=== PATIENT | female | born 1940 | race Caucasian/White ===

== ENCOUNTER 2017-11-21 13:26 | Emergency (ER) | payer OTHER ==
--- NOTE | 2017-11-21 14:04 | ER ---
Nurse's Notes [facility] Name: Charline Leahy Age: 77 yrs Sex: Female : 1940 Arrival Date: 11/21/2017 Time: 13:30 Bed 12 Private MD: Pearl Gross C Diagnosis: Urinary tract infection, site not specified;Dysuria Presentation: 11/21 13:31 Presenting complaint: Patient states: burning with urination since , taking la1 azos, not helping. Transition of care: patient was not received from another setting of care. Onset of symptoms was November 21, 2017. Risk Assessment: Do you want to hurt yourself or someone else? Patient reports no desire to harm self or others. Initial Sepsis Screen: Does the patient meet any 2 criteria? No. Patient's initial sepsis screen is negative. Does the patient have a suspected source of infection? No. Patient's initial sepsis screen is negative. Care prior to arrival: None. 13:31 Method Of Arrival: Ambulatory la1 13:31 Acuity: YANELY 4 la1 Historical: - Allergies: 13:32 Sulfa (Sulfonamide Antibiotics); la1 - PMHx: 13:32 Bipolar disorder; Hypertension; la1 - Immunization history:: Adult Immunizations up to date. - Social history:: Smoking status: Patient/guardian denies using tobacco. - Ebola Screening: : No symptoms or risks identified at this time. Screenin:55 Abuse screen: Denies threats or abuse. Nutritional screening: No deficits noted. la1 Tuberculosis screening: No symptoms or risk factors identified. Fall Risk None identified. Assessment: 13:55 General: Appears well groomed, well developed, well nourished, Behavior is calm, la1 cooperative, appropriate for age. Pain: Denies pain. Neuro: Level of Consciousness is awake, alert, obeys commands, Oriented to person, place, time, situation, Gait is steady, Speech is normal. Cardiovascular: Capillary refill < 3 seconds Patient's skin is warm and dry. Respiratory: Airway is patent Respiratory effort is even, unlabored, Respiratory pattern is regular, symmetrical. GI: No signs and/or symptoms were reported involving the gastrointestinal system. : Reports burning with urination, since . Vital Signs: 13:32 BP 130 / 68; Pulse 61; Resp 16; Temp 97.3(TE); Pulse Ox 96% on R/A; Weight 64.86 kg; la1 Height 5 ft. 4 in. (162.56 cm); 13:32 Body Mass Index 24.55 (64.86 kg, 162.56 cm) la1 ED Course: 13:30 Patient arrived in ED. mr 13:30 None, None is Private Physician. mr 13:30 Pearl Gross MD is Private Physician. mr 13:31 Triage completed. la1 13:32 Arm band placed on right wrist. la1 13:46 Sissy Colbert, RN is Primary Nurse. iw 13:55 Anna Cote FNP-C is PHCP. snw 13:55 Arnulfo Medina MD is Attending Physician. snw 13:55 Call light in reach. la1 13:55 No provider procedures requiring assistance completed. Patient did not have IV access la1 during this emergency room visit. 14:02 Pearl Gross MD is Referral Physician. snw 14:12 Urine collected: clean catch specimen, cloudy. [facility] 14:12 Urine Culture Sent. [facility] Administered Medications: 14:18 Drug: Rocephin (cefTRIAXone) 1 grams Route: IM; Site: left gluteus; Outcome: 14:03 Discharge ordered by MD. snw 14:28 Discharged to home ambulatory, with family. iw 14:28 Condition: good 14:28 Discharge instructions given to patient, family, Instructed on discharge instructions, follow up and referral plans. medication usage, Demonstrated understanding of instructions, follow-up care, medications, Prescriptions given X 1. 14:29 Patient left the ED. iw Addendum: 11/24/2017 07:16 Addendum: Culture Results: Positive urine culture. No further action required. Bacteria s s sensitive to prescribed antibiotic. Signatures: Anna Cote FNP-C FNP-CsnCyndi Hussein mr Sissy Colbert, RN TOÑO Sasha Patel RN RN Logan Pappas RN RN la1 Martinez, Maria [facility]
--- NOTE | 2017-11-21 14:04 | EDPHYS ---
Physician Documentation [facility] Name: Charline Leahy Age: 77 yrs Sex: Female : 1940 Arrival Date: 11/21/2017 Time: 13:30 Bed 12 Private MD: Pearl Gross C ED Physician Arnulfo Medina HPI: 11/21 14:06 This 77 yrs old Female presents to ER via Ambulatory with complaints of snw Urinary Problem. 14:06 The patient presents with urinary symptoms, dysuria, frequency, urgency. Onset: The snw symptoms/episode began/occurred suddenly, 3 day(s) ago, and became persistent. Modifying factors: The symptoms are alleviated by nothing. Associated signs and symptoms: The patient has no apparent associated signs or symptoms. Severity of symptoms: At their worst the symptoms were moderate. The patient has experienced a previous episode. It is unknown whether or not the patient has recently seen a physician. Historical: - Allergies: 13:32 Sulfa (Sulfonamide Antibiotics); la1 - PMHx: 13:32 Bipolar disorder; Hypertension; la1 - Immunization history:: Adult Immunizations up to date. - Social history:: Smoking status: Patient/guardian denies using tobacco. - Ebola Screening: : No symptoms or risks identified at this time. ROS: 14:04 Constitutional: Negative for fever, chills, and weight loss, Eyes: Negative for injury, snw pain, redness, and discharge, ENT: Negative for injury, pain, and discharge, Neck: Negative for injury, pain, and swelling, Cardiovascular: Negative for chest pain, palpitations, and edema, Respiratory: Negative for shortness of breath, cough, wheezing, and pleuritic chest pain, Abdomen/GI: Negative for abdominal pain, nausea, vomiting, diarrhea, and constipation, Back: Negative for injury and pain, : Negative for injury, bleeding, discharge, and swelling, + dysuria MS/Extremity: Negative for injury and deformity, Skin: Negative for injury, rash, and discoloration, Neuro: Negative for headache, weakness, numbness, tingling, and seizure, Psych: Negative for depression, anxiety, suicide ideation, homicidal ideation, and hallucinations. Exam: 14:04 Constitutional: This is a well developed, well nourished patient who is awake, alert, snw and in no acute distress. Head/Face: Normocephalic, atraumatic. Eyes: Pupils equal round and reactive to light, extra-ocular motions intact. Lids and lashes normal. Conjunctiva and sclera are non-icteric and not injected. Cornea within normal limits. Periorbital areas with no swelling, redness, or edema. ENT: Nares patent. No nasal discharge, no septal abnormalities noted. Tympanic membranes are normal and external auditory canals are clear. Oropharynx with no redness, swelling, or masses, exudates, or evidence of obstruction, uvula midline. Mucous membranes moist. Neck: Trachea midline, no thyromegaly or masses palpated, and no cervical lymphadenopathy. Supple, full range of motion without nuchal rigidity, or vertebral point tenderness. No Meningismus. Chest/axilla: Normal chest wall appearance and motion. Nontender with no deformity. No lesions are appreciated. Cardiovascular: Regular rate and rhythm with a normal S1 and S2. No gallops, murmurs, or rubs. Normal PMI, no JVD. No pulse deficits. Respiratory: Lungs have equal breath sounds bilaterally, clear to auscultation and percussion. No rales, rhonchi or wheezes noted. No increased work of breathing, no retractions or nasal flaring. Abdomen/GI: Soft, non-tender, with normal bowel sounds. No distension or tympany. No guarding or rebound. No evidence of tenderness throughout. Back: No spinal tenderness. No costovertebral tenderness. Full range of motion. Skin: Warm, dry with normal turgor. Normal color with no rashes, no lesions, and no evidence of cellulitis. MS/ Extremity: Pulses equal, no cyanosis. Neurovascular intact. Full, normal range of motion. Neuro: Awake and alert, GCS 15, oriented to person, place, time, and situation. Cranial nerves II-XII grossly intact. Motor strength 5/5 in all extremities. Sensory grossly intact. Cerebellar exam normal. Normal gait. Psych: Awake, alert, with orientation to person, place and time. Behavior, mood, and affect are within normal limits. Vital Signs: 13:32 BP 130 / 68; Pulse 61; Resp 16; Temp 97.3(TE); Pulse Ox 96% on R/A; Weight 64.86 kg; la1 Height 5 ft. 4 in. (162.56 cm); 13:32 Body Mass Index 24.55 (64.86 kg, 162.56 cm) la1 MDM: 13:55 Patient medically screened. snw 14:05 Data reviewed: vital signs, nurses notes. Data interpreted: Pulse oximetry: on room air snw is 96 %. Interpretation: acceptable. Counseling: I had a detailed discussion with the patient and/or guardian regarding: the historical points, exam findings, and any diagnostic results supporting the discharge/admit diagnosis, lab results, the need for outpatient follow up, to return to the emergency department if symptoms worsen or persist or if there are any questions or concerns that arise at home. Special discussion: Based on the history and exam findings, there is no indication for further emergent testing or inpatient evaluation. I discussed with the patient/guardian the need to see the primary care provider for further evaluation of the symptoms. 11/21 13:49 Order name: Urine Microscopic Only; Complete Time: 14:12 iw 11/21 13:49 Order name: Urine Culture iw 11/21 13:33 Order name: Urine Dipstick-Ancillary (obtain specimen); Complete Time: 13:45 la1 11/21 13:57 Order name: Urine Dipstick--Ancillary (enter results); Complete Time: 14:12 eb Administered Medications: 14:18 Drug: Rocephin (cefTRIAXone) 1 grams Route: IM; Site: left gluteus; Disposition: 15:36 Co-signature as Attending Physician, Arnulfo Medina MD I agree with the assessment and kdr plan of care. Disposition: 11/21/17 14:03 Discharged to Home. Impression: Urinary tract infection, site not specified, Dysuria. - Condition is Stable. - Discharge Instructions: Urinary Tract Infection, Adult, Rehydration, Elderly. - Prescriptions for Augmentin 875- 125 mg Oral Tablet - take 1 tablet by ORAL route every 12 hours for 10 days; 20 tablet. - Medication Reconciliation Form, Thank You Letter, Antibiotic Education, Prescription Opioid Use form. - Follow up: Pearl Gross MD; When: 2 - 3 days; Reason: Recheck today's complaints, Continuance of care, Re-evaluation by your physician. Follow up: Emergency Department; When: As needed; Reason: Worsening of condition. Signatures: Dispatcher [employer] [facility] Arnulfo Medina MD MD kdr Therrien, Shelly, AUTHOR AGENT-C AUTHOR AGENT-Csnw Sissy Colbert, RN RN iw Logan Pappas RN RN la1 Corrections: (The following items were deleted from the chart) 14:29 14:03 11/21/2017 14:03 Discharged to Home. Impression: Urinary tract infection, site iw not specified; Dysuria. Condition is Stable. Forms are Medication Reconciliation Form, Thank You Letter, Antibiotic Education, Prescription Opioid Use. Follow up: A Gross; When: 2 - 3 days; Reason: Recheck today's complaints, Continuance of care, Re-evaluation by your physician. Follow up: Emergency Department; When: As needed; Reason: Worsening of condition. snw
[2017-11-21 14:09] LABS: Urine Blood 2+ (NEG); Urine Glucose NEGATIVE (NEG); Urine Protein 2+ (NEG); Urine Specific Gravity 1.025 (1.005-1.030)
[2017-11-21 14:11] LABS: Urine Bacteria >50 /HPF (<20); Urine Culture Reflex Order NOT NEEDED; Urine RBC >50 /HPF (NONE SEEN)
[2017-11-21] MEDS ORDERED: LIDOCAINE 1% MPF 5 ML VIAL ONE (14:14)
[2017-11-21] MEDS ORDERED: CEFTRIAXONE 1000 MG/VIAL ONE (14:14)
== END 2017-11-21 14:29 | disposition home or self-care (01) ==
LOC: ER 13:26
DX: N39.0 Urinary tract infection, site not specified (principal); Z88.2 Allergy status to sulfonamides; F31.9 Bipolar disorder, unspecified; I10 Essential (primary) hypertension
CPT/HCPCS: 81003; 81015; 87077; 87086; 87088; 87186; 96372; 99283

== ENCOUNTER 2018-09-10 12:02 | Inpatient (IN) | payer OTHER ==
[2018-09-10] MEDS ORDERED: HYDROMORPHONE HCL 0.5 MG/0.5 ML INJ ONE ×2 (12:28→14:20)
[2018-09-10] MEDS ORDERED: ONDANSETRON 4 MG/2 ML VIAL ONE (12:28)
--- NOTE | 2018-09-10 12:53 | RAD REPORT ---
EXAM DESCRIPTION: RAD - Hip Right 2 View - 09/10/2018 12:39 pm CLINICAL HISTORY: Fall, right hip pain COMPARISON: September 2008 FINDINGS: AP and frog-leg views of the right hip were obtained. Transverse fracture is present thro ugh the right femoral neck. No pathologic component. There is mild impaction along the medial margin of the fracture line. No AVN or focal femoral head abnormality. No significant periarticular abnormal ity. IMPRESSION: Right femoral neck fracture as detailed.
--- NOTE | 2018-09-10 12:53 | RAD REPORT ---
EXAM DESCRIPTION: RAD - Chest Single View - 09/10/2018 12:40 pm CLINICAL HISTORY: Preop chest, femur fracture pending repair COMPARISON: May 2016 TECHNIQUE: AP portable chest image was obtained 1237 hour . FINDINGS: Lung volumes are low. Interstitial markings are similar to comparison. No failure or infil trate. Large hiatal hernia is present. Heart and vasculature are normal. No measurable pleural effusi on and no pneumothorax. No acute bony abnormality seen. No acute aortic findings suspected. IMPRESSION: No acute cardiopulmonary process. No significant change from comparison.
--- NOTE | 2018-09-10 13:09 | ER ---
Nurse's Notes [facility] Name: Charline Leahy Age: 78 yrs Sex: Female : 1940 Arrival Date: 09/10/2018 Time: 12:05 Bed 2 Private MD: Diagnosis: Displaced fracture of base of neck of right femur Presentation: 09/10 12:05 Presenting complaint: EMS states: fall from standing with right hip pain. Pt denies aa5 LOC, denies head injury. 12:05 Acuity: YANELY 3 aa5 12:05 Care prior to arrival: Medication(s) given: Fentanyl 75 mcg IVP IV initiated. 22 GA, in aa5 the right forearm. 12:05 Method Of Arrival: EMS: [facility] aa5 12:05 Mechanism of Injury: Fall from standing position. Trauma event details: Injury occurred aa5 in the [facility], Injury occurred: at home. Injury occurred: September 10, 2018. 12:05 Transition of care: patient was not received from another setting of care. Onset of aa5 symptoms was September 10, 2018. Risk Assessment: Do you want to hurt yourself or someone else? Patient reports no desire to harm self or others. Initial Sepsis Screen: Does the patient meet any 2 criteria? No. Patient's initial sepsis screen is negative. Does the patient have a suspected source of infection? No. Patient's initial sepsis screen is negative. 12:05 Care prior to arrival: Placed on backboard. aa5 Trauma Activation: Alert Physician: ED Physician; Name: ; Notified At: ; Arrived At: Physician: General Surgeon; Name: ; Notified At: ; Arrived At: Physician: Radiology; Name: ; Notified At: ; Arrived At: Physician: Respiratory; Name: ; Notified At: ; Arrived At: Physician: Lab; Name: ; Notified At: ; Arrived At: Historical: - Allergies: 12:05 Sulfa (Sulfonamide Antibiotics); aa5 - Home Meds: 12:31 Risperdal 1 mg Oral tab 1 tab once daily [Active]; trazodone 50 mg Oral tab 1 tab 3 sr5 times per day [Active]; pramopexole 0.25mg at night [Active]; bupropion HCl 100 mg Oral tab 1 tab 2 times per day [Active]; amlodipine besylate 5mg at morning [Active]; levothyroxine 75 mcg tab 1 tab once daily [Active]; Prevacid Oral once daily [Active]; - PMHx: 12:05 Bipolar disorder; Hypertension; Thyroid problem; aa5 - PSHx: 12:31 endoscope -stretching ring around esophagus; cataract - bilateral; Cholecystectomy; sr5 ovary removed; hysterectomy - partial; endometrosis surgery; colonscopy - "clear" 2009; - Ebola Screening: : No symptoms or risks identified at this time. Screenin:05 Abuse screen: Denies threats or abuse. Nutritional screening: No deficits noted. aa5 Tuberculosis screening: No symptoms or risk factors identified. Fall Risk Fall in past 12 months (25 points). IV access (20 points). Total Trevino Fall Scale indicates High Risk Score (45 or more points). Fall prevention measures have been instituted. Side Rails Up X 2 Placed Close to Nursing Station. Primary Survey: 12:05 NO uncontrolled hemorrhage observed. A: The patient is alert. Airway: patent. aa5 Breathing/Chest: Chest inspection: symmetrical rise and fall of the chest. Circulation: Skin color: pink. Disability Alert. Exposure/Environment: A warming method has been applied: A warm blanket has been provided to the patient. 12:20 Reassessment Airway Airway Patent Breathing/Chest Respiratory pattern Regular aa5 Respiratory effort Spontaneous Unlabored Chest inspection Symmetrical Circulation Color [place] Disability Alert. Secondary Survey: 12:05 HEENT: No deficits noted. Gastrointestinal: No deficits noted. : No deficits noted. aa5 Musculoskeletal: Reports pain in right hip. Assessment: 12:05 General: Appears uncomfortable, Behavior is calm, cooperative. Pain: Complains of pain aa5 in right hip Pain does not radiate. Pain currently is 6 out of 10 on a pain scale. Quality of pain is described as sharp, Is continuous, Aggravated by repositioning, Noted to be resistant to movement. Neuro: Level of Consciousness is awake, alert, obeys commands, Oriented to person, place, time, situation. EENT: No signs and/or symptoms were reported regarding the EENT system. Cardiovascular: Heart tones S1 S2 present Rhythm is regular. Respiratory: Airway is patent Respiratory effort is even, unlabored, Respiratory pattern is regular, symmetrical. GI: No signs and/or symptoms were reported involving the gastrointestinal system. : No signs and/or symptoms were reported regarding the genitourinary system. Derm: Skin is pink, warm \\T\\ dry. Musculoskeletal: Reports pain in right hip Pt with right leg bent, pt states "I can't straighten my leg because it hurts too bad". Pillow to help support right leg provided for comfort. 12:10 Reassessment: Backboard removed by PA. aa5 12:25 Reassessment: Pt to radiology . aa5 13:00 Reassessment: Patient is alert, oriented x 3, equal unlabored respirations, skin aa5 warm/dry/pink. Pt back from radiology . 14:15 Reassessment: Patient is alert, oriented x 3, equal unlabored respirations, skin aa5 warm/dry/pink. Patient states feeling better. 15:20 Reassessment: Patient is alert, oriented x 3, equal unlabored respirations, skin aa5 warm/dry/pink. Patient states feeling better. Vital Signs: 12:05 BP 115 / 63; Pulse 63; Resp 16 S; Temp 97.0(TE); Pulse Ox 97% on R/A; Pain 6/10; aa5 13:05 BP 135 / 55; Pulse 55; Resp 16 S; Pulse Ox 97% on R/A; Pain 5/10; aa5 13:45 BP 123 / 61; Pulse 55; Resp 16 S; Pulse Ox 97% on R/A; aa5 14:08 BP 156 / 58; Pulse 59; Resp 18 S; Pulse Ox 96% on R/A; Pain 10/10; aa5 14:15 Resp 6 S; Pulse Ox 48% on R/A; aa5 14:25 BP 132 / 66; Pulse 63; Resp 12 S; Pulse Ox 100% on Non-rebreather mask; aa5 14:30 Pulse Ox 97% on 2 lpm NC; aa5 14:35 BP 136 / 63; Pulse 64; Resp 16 S; Temp 97.8(TE); Pulse Ox 97% on 2 lpm NC; Pain 5/10; aa5 15:15 BP 123 / 64; Pulse 65; Resp 14 S; Pulse Ox 97% on 2 lpm NC; aa5 14:15 Pt easy to awake to verbal stimuli, pt instructed to take deep breaths and O2 sat aa5 increased to 60%, O2 administered via non-rebreather and O2 increased to 97%. Annabella Coma Score: 12:05 Eye Response: spontaneous(4). Verbal Response: oriented(5). Motor Response: obeys aa5 commands(6). Total: 15. Trauma Score (Adult): 12:05 Eye Response: spontaneous(1); Verbal Response: oriented(1); Motor Response: obeys aa5 commands(2); Systolic BP: > 89 mm Hg(4); Respiratory Rate: 10 to 29 per min(4); Almont Score: 15; Trauma Score: 12 13:05 Eye Response: spontaneous(1); Verbal Response: oriented(1); Motor Response: obeys aa5 commands(2); Systolic BP: > 89 mm Hg(4); Respiratory Rate: 10 to 29 per min(4); Almont Score: 15; Trauma Score: 12 13:45 Eye Response: spontaneous(1); Verbal Response: oriented(1); Motor Response: obeys aa5 commands(2); Systolic BP: > 89 mm Hg(4); Respiratory Rate: 10 to 29 per min(4); Almont Score: 15; Trauma Score: 12 14:08 Eye Response: spontaneous(1); Verbal Response: oriented(1); Motor Response: obeys aa5 commands(2); Systolic BP: > 89 mm Hg(4); Respiratory Rate: 10 to 29 per min(4); Annabella Score: 15; Trauma Score: 12 14:35 Eye Response: spontaneous(1); Verbal Response: oriented(1); Motor Response: obeys aa5 commands(2); Systolic BP: > 89 mm Hg(4); Respiratory Rate: 10 to 29 per min(4); Almont Score: 15; Trauma Score: 12 15:15 Eye Response: spontaneous(1); Verbal Response: oriented(1); Motor Response: obeys aa5 commands(2); Systolic BP: > 89 mm Hg(4); Respiratory Rate: 10 to 29 per min(4); Almont Score: 15; Trauma Score: 12 ED Course: 12:05 Patient arrived in ED. 5 12:05 Rodolfo Saez PA is PHCP. 8 12:05 Edmar Todd MD is Attending Physician. 8 12:05 Arm band placed on Patient placed in an exam room, on a stretcher. aa5 12:05 Patient has correct armband on for positive identification. Placed in gown. Bed in low aa5 position. Call light in reach. Side rails up X2. 12:05 Pillow given. Verbal reassurance given. Pulse ox on. NIBP on. jp3 12:05 Patient maintains SpO2 saturation greater than 95% on room air. Thermoregulation: warm aa5 blanket given to patient. 12:15 Ava Riley RN is Primary Nurse. aa5 12:17 Triage completed. aa5 12:40 Maintain EMS IV. Dressing intact. Good blood return noted. Site clean \\T\\ dry. Gauge \\T\\ onesimo 3 site: 20-gauge in right wrist. 12:46 EKG done, by radiation therapy technician. reviewed by Rodolfo BARRETT. at1 13:00 Initial lab(s) drawn, by me, sent to lab. jp3 13:02 Protime (+inr) Sent. jp3 13:02 Ptt, Activated Sent. jp3 13:02 Basic Metabolic Panel Sent. jp3 13:02 CBC with Diff Sent. jp3 13:08 Pearl Gross MD is Hospitalizing Provider. jr8 14:25 Yu cath inserted, using sterile technique, 16 Fr., by mn, balloon inflated, to aa5 gravity drainage, returned clear yellow urine. Patient tolerated well. 15:20 No provider procedures requiring assistance completed. Patient admitted, IV remains in aa5 place. Administered Medications: 12:23 Drug: Dilaudid 0.5 mg Route: IVP; Site: right forearm; sr5 12:25 Follow up: Response: No adverse reaction aa5 12:23 Drug: Zofran 4 mg Route: IVP; Site: right forearm; sr5 12:24 Follow up: Response: No adverse reaction aa5 14:08 Drug: Dilaudid 0.5 mg Route: IVP; Site: right forearm; aa5 14:15 Follow up: Response: Pain is decreased aa5 Output: 15:15 Urine: 100ml (Yu); Total: 100ml. aa5 Outcome: 13:09 Decision to Hospitalize by Provider. jr8 13:09 Patient's length of stay was not longer than 2 hours. aa5 15:20 Admitted to Med/surg accompanied by tech, family with patient, via stretcher, with aa5 oxygen, with chart, Report called to TOÑO Mitchell 15:20 Condition: stable 15:20 Discharge instructions given to patient, family, Instructed on the need for admit, Demonstrated understanding of instructions. 15:29 Patient left the ED. aa5 Signatures: Ava Riley RN RN aa5 Rodolfo Saez PA PA jr8 Dora Ren, medication nurse EKG Tat1 Tres Cabrera RN RN sr5 Santos Ly jp3 Corrections: (The following items were deleted from the chart) 14:11 13:05 BP 135 / 55; Pulse 55bpm; Resp 16bpm; Spontaneous; Pulse Ox 97% RA; aa5 aa5
--- NOTE | 2018-09-10 13:10 | EDPHYS ---
Physician Documentation [facility] Name: Charline Leahy Age: 78 yrs Sex: Female : 1940 Arrival Date: 09/10/2018 Time: 12:05 Bed 2 Private MD: ED Physician Edmar Todd HPI: 09/10 12:30 This 78 yrs old Female presents to ER via EMS with complaints of Fall Injury. jr8 12:30 Details of fall: The patient fell from an upright position, while standing. Onset: The jr8 symptoms/episode began/occurred acutely, today. Associated injuries: The patient sustained right leg. Severity of symptoms: At their worst the symptoms were moderate, in the emergency department the symptoms are unchanged. The patient has not experienced similar symptoms in the past. The patient has not recently seen a physician. Tripped while in garage. Accidental fall landing on right hip region. Pain with decreased ROM since incident. EMS splinted in place and gave pain medication. Patient still in pain upon arrival. Denies pain anywhere else. Denies hitting head or neck. No LOC . Historical: - Allergies: 12:05 Sulfa (Sulfonamide Antibiotics); aa5 - Home Meds: 12:31 Risperdal 1 mg Oral tab 1 tab once daily [Active]; trazodone 50 mg Oral tab 1 tab 3 sr5 times per day [Active]; pramopexole 0.25mg at night [Active]; bupropion HCl 100 mg Oral tab 1 tab 2 times per day [Active]; amlodipine besylate 5mg at morning [Active]; levothyroxine 75 mcg tab 1 tab once daily [Active]; Prevacid Oral once daily [Active]; - PMHx: 12:05 Bipolar disorder; Hypertension; Thyroid problem; aa5 - PSHx: 12:31 endoscope -stretching ring around esophagus; cataract - bilateral; Cholecystectomy; sr5 ovary removed; hysterectomy - partial; endometrosis surgery; colonscopy - "clear" 2009; - Ebola Screening: : No symptoms or risks identified at this time. ROS: 12:30 Eyes: Negative for injury, pain, redness, and discharge, ENT: Negative for injury, jr8 pain, and discharge, Neck: Negative for injury, pain, and swelling, Cardiovascular: Negative for chest pain, palpitations, and edema, Respiratory: Negative for shortness of breath, cough, wheezing, and pleuritic chest pain, Abdomen/GI: Negative for abdominal pain, nausea, vomiting, diarrhea, and constipation, Back: Negative for injury and pain, Skin: Negative for injury, rash, and discoloration, Neuro: Negative for headache, weakness, numbness, tingling, and seizure. 12:30 MS/extremity: Positive for decreased range of motion, pain, tenderness, of the right leg and right hip. Exam: 12:30 Eyes: Pupils equal round and reactive to light, extra-ocular motions intact. Lids and jr8 lashes normal. Conjunctiva and sclera are non-icteric and not injected. Cornea within normal limits. Periorbital areas with no swelling, redness, or edema. ENT: Nares patent. No nasal discharge, no septal abnormalities noted. Tympanic membranes are normal and external auditory canals are clear. Oropharynx with no redness, swelling, or masses, exudates, or evidence of obstruction, uvula midline. Mucous membranes moist. Neck: Trachea midline, no thyromegaly or masses palpated, and no cervical lymphadenopathy. Supple, full range of motion without nuchal rigidity, or vertebral point tenderness. No Meningismus. Cardiovascular: Regular rate and rhythm with a normal S1 and S2. No gallops, murmurs, or rubs. Normal PMI, no JVD. No pulse deficits. Respiratory: Lungs have equal breath sounds bilaterally, clear to auscultation and percussion. No rales, rhonchi or wheezes noted. No increased work of breathing, no retractions or nasal flaring. Abdomen/GI: Soft, non-tender, with normal bowel sounds. No distension or tympany. No guarding or rebound. No evidence of tenderness throughout. Back: No spinal tenderness. No costovertebral tenderness. Full range of motion. Skin: Warm, dry with normal turgor. Normal color with no rashes, no lesions, and no evidence of cellulitis. Neuro: Awake and alert, GCS 15, oriented to person, place, time, and situation. Cranial nerves II-XII grossly intact. Motor strength 5/5 in all extremities. Sensory grossly intact. Cerebellar exam normal. Normal gait. 12:30 Musculoskeletal/extremity: Extremities: grossly normal except: noted in the right leg: Patient outwardly rotated with pain to palpation of the right inguinal region and lateral hip. Pelvis intact and without crepitus or instability. Pulses 2+ PT and DP bilaterally with normal sensation , ROM: limited active range of motion, in the right leg, limited passive range of motion, in the right leg, limited active range of motion due to pain, in the right leg, limited passive range of motion due to pain, in the right leg, The rest of patients extremities unremarkable . Vital Signs: 12:05 BP 115 / 63; Pulse 63; Resp 16 S; Temp 97.0(TE); Pulse Ox 97% on R/A; Pain 6/10; aa5 13:05 BP 135 / 55; Pulse 55; Resp 16 S; Pulse Ox 97% on R/A; Pain 5/10; aa5 13:45 BP 123 / 61; Pulse 55; Resp 16 S; Pulse Ox 97% on R/A; aa5 14:08 BP 156 / 58; Pulse 59; Resp 18 S; Pulse Ox 96% on R/A; Pain 10/10; aa5 14:15 Resp 6 S; Pulse Ox 48% on R/A; aa5 14:25 BP 132 / 66; Pulse 63; Resp 12 S; Pulse Ox 100% on Non-rebreather mask; aa5 14:30 Pulse Ox 97% on 2 lpm NC; aa5 14:35 BP 136 / 63; Pulse 64; Resp 16 S; Temp 97.8(TE); Pulse Ox 97% on 2 lpm NC; Pain 5/10; aa5 15:15 BP 123 / 64; Pulse 65; Resp 14 S; Pulse Ox 97% on 2 lpm NC; aa5 14:15 Pt easy to awake to verbal stimuli, pt instructed to take deep breaths and O2 sat aa5 increased to 60%, O2 administered via non-rebreather and O2 increased to 97%. Recluse Coma Score: 12:05 Eye Response: spontaneous(4). Verbal Response: oriented(5). Motor Response: obeys aa5 commands(6). Total: 15. Trauma Score (Adult): 12:05 Eye Response: spontaneous(1); Verbal Response: oriented(1); Motor Response: obeys aa5 commands(2); Systolic BP: > 89 mm Hg(4); Respiratory Rate: 10 to 29 per min(4); Annabella Score: 15; Trauma Score: 12 13:05 Eye Response: spontaneous(1); Verbal Response: oriented(1); Motor Response: obeys aa5 commands(2); Systolic BP: > 89 mm Hg(4); Respiratory Rate: 10 to 29 per min(4); Annabella Score: 15; Trauma Score: 12 13:45 Eye Response: spontaneous(1); Verbal Response: oriented(1); Motor Response: obeys aa5 commands(2); Systolic BP: > 89 mm Hg(4); Respiratory Rate: 10 to 29 per min(4); Annabella Score: 15; Trauma Score: 12 14:08 Eye Response: spontaneous(1); Verbal Response: oriented(1); Motor Response: obeys aa5 commands(2); Systolic BP: > 89 mm Hg(4); Respiratory Rate: 10 to 29 per min(4); Annabella Score: 15; Trauma Score: 12 14:35 Eye Response: spontaneous(1); Verbal Response: oriented(1); Motor Response: obeys aa5 commands(2); Systolic BP: > 89 mm Hg(4); Respiratory Rate: 10 to 29 per min(4); Recluse Score: 15; Trauma Score: 12 15:15 Eye Response: spontaneous(1); Verbal Response: oriented(1); Motor Response: obeys aa5 commands(2); Systolic BP: > 89 mm Hg(4); Respiratory Rate: 10 to 29 per min(4); Recluse Score: 15; Trauma Score: 12 MDM: 12:05 Patient medically screened. rust 13:06 Data reviewed: vital signs, nurses notes, lab test result(s), EKG, radiologic studies, rust plain films, and as a result, I will admit patient. Data interpreted: Pulse oximetry: on room air is 97 %. Interpretation: normal. Counseling: I had a detailed discussion with the patient and/or guardian regarding: the historical points, exam findings, and any diagnostic results supporting the discharge/admit diagnosis, lab results, radiology results, the need for further work-up and treatment in the hospital. ED course: Consulted Dr. Sears who will see patient . 13:08 Physician consultation: A Renato GREEN was called at 13:08, was contacted at 13:08, jr regarding admission, to the telemetry unit. consult, patient's condition, and will see patient. 09/10 12:14 Order name: CBC with Diff rn 09/10 12:14 Order name: Basic Metabolic Panel rn 09/10 12:14 Order name: Protime (+inr) rn 09/10 12:14 Order name: Ptt, Activated rn 09/10 13:16 Order name: CBC with Automated Diff; Complete Time: 13:17 EDMS 09/10 13:22 Order name: Protime (+INR); Complete Time: 13:26 EDMS 09/10 12:14 Order name: XRAY Hip RIGHT 2 view rn 09/10 12:14 Order name: XRAY Chest (1 view) rn 09/10 12:55 Order name: RAD; Complete Time: 13:07 EDMS 09/10 12:55 Order name: RAD; Complete Time: 13:07 EDMS 09/10 13:22 Order name: PTT, Activated Partial Thromb; Complete Time: 13:26 EDMS 09/10 15:10 Order name: Basic Metabolic Panel; Complete Time: 15:50 EDMS 09/10 12:13 Order name: IV; Complete Time: 12:16 jr8 09/10 12:13 Order name: EKG; Complete Time: 12:14 jr8 09/10 12:13 Order name: EKG - Nurse/Tech; Complete Time: 14:53 jr8 09/10 13:26 Order name: Yu; Complete Time: 14:30 jr8 Administered Medications: 12:23 Drug: Dilaudid 0.5 mg Route: IVP; Site: right forearm; sr5 12:25 Follow up: Response: No adverse reaction aa5 12:23 Drug: Zofran 4 mg Route: IVP; Site: right forearm; sr5 12:24 Follow up: Response: No adverse reaction aa5 14:08 Drug: Dilaudid 0.5 mg Route: IVP; Site: right forearm; aa5 14:15 Follow up: Response: Pain is decreased aa5 Disposition: 16:25 Co-signature as Attending Physician, Edmar Todd MD. rn Disposition: 09/10/18 13:09 Hospitalization ordered by Pearl Gross for Inpatient Admission. Preliminary diagnosis is Displaced fracture of base of neck of right femur. - Bed requested for Telemetry/MedSurg (Inpatient). - Status is Inpatient Admission. aa5 - Condition is Stable. - Problem is new. - Symptoms have improved. UTI on Admission? No Signatures: Dispatcher [employer] EDMS Holly Parkinson RN RN dw Edmar Todd MD MD rn Calderon, Audri, RN RN aa5 Rodolfo Saez PA PA jr8 Tres Cabrera RN RN sr5 Corrections: (The following items were deleted from the chart) 14:01 13:09 Hospitalization Ordered by A Renato GREEN for Inpatient Admission. Preliminary dw diagnosis is Displaced fracture of base of neck of right femur. Bed requested for Telemetry/MedSurg (Inpatient). Status is Inpatient Admission. Condition is Stable. Problem is new. Symptoms have improved. UTI on Admission? No. jr8 15:29 14:01 09/10/2018 13:09 Hospitalization Ordered by A Renato GREEN for Inpatient Admission. aa5 Preliminary diagnosis is Displaced fracture of base of neck of right femur. Bed requested for Telemetry/MedSurg (Inpatient). Status is Inpatient Admission. Condition is Stable. Problem is new. Symptoms have improved. UTI on Admission? No. dw
[2018-09-10 13:14] LABS: Basophils % 0.7 % (0-1.3); Hematocrit 36.6 % (36.0-45.0); Lymphocytes % 8.7 % (15.3-44.8); MPV 7.5 fL (7.6-11.3); Monocytes % 5.8 % (3.3-12.3)
[2018-09-10 13:18] LABS: Protime INR 0.92
--- NOTE | 2018-09-10 15:08 | EKG ---
Test Date: 2018-09-10 Test Time: 12:43:52 Carbide Powder Processor: ANABELL/S MEASUREMENT RESULTS: Intervals: Rate: 52 GA: 152 QRSD: 90 QT: 438 QTc: 407 Warren: P: 39 GA: 152 QRS: -18 T: 30 INTERPRETIVE STATEMENTS: Sinus bradycardia with sinus arrhythmia Otherwise normal ECG Compared to ECG 02/18/2014 16:48:17 Sinus rhythm no longer present T-wave abnormality no longer present Electronically Signed On 09-10-18 15:07:51 CDT by Roberth Atwood
[2018-09-10] MEDS ORDERED: ONDANSETRON 4 MG/2 ML VIAL IV PRN (15:51)
[2018-09-10] MEDS ORDERED: MORPHINE 4 MG/ML SYR IV PRN (15:51)
[2018-09-10] MEDS: NA CHLORIDE 0.9% 1,000 ML IV SCH (16:27)
[2018-09-10] MEDS: MORPHINE 4 MG/ML SYR IV PRN ×2 (20:00→22:13)
[2018-09-10] MEDS: FAMOTIDINE 20 MG TAB PO SCH (21:00)
[2018-09-10] MEDS ORDERED: TRAZODONE 50 MG TABLET PO SCH (21:00)
[2018-09-10] MEDS ORDERED: RISPERIDONE 1 MG TABLET PO SCH (21:00)
[2018-09-10] MEDS ORDERED: PRAMIPEXOLE 0.25 MG TAB PO SCH (21:00)
[2018-09-11] MEDS: MORPHINE 4 MG/ML SYR IV PRN ×4 (00:45→23:47)
--- NOTE | 2018-09-11 01:29 | CON ---
Date of Consultation: 09/10/2018 History Of Present Illness: This is my first time seeing this patient to my knowledge. She is a 78- year-old female who unfortunately injured her right lower extremity. She was seen and examined in [facility] Emergency Department where she was ruled out for other injuries; however, x-rays demonstrated a dis placed femoral neck fracture on the right. Physical Examination: All of her long bones and joints are palpated without pain or crepitation with exception of significa nt amount of pain related to the right hip as well as pain with any movement or manipulation of the r ight lower extremity. She is alert and oriented x3 and denies any other injury. Imaging Data: Review of the x-rays demonstrates a displaced right femoral neck fracture. Assessment: This is a 78-year-old female, now with a displaced right femoral neck fracture. Plan: Plan at this time: I spoke with both the patient and her family. Discussed different options and at this time we will proceed with bipolar hemiarthroplasty on the right. The risks, benefits, a nd alternatives of this specific procedure had been explained to her. Dr. Gross is seeing her now and I believe knows her well, and she is cleared from his standpoint when asked. We will plan on doing this tomorrow morning. I think she can eat now, be n.p.o. after midnight. SCD to the contralateral lower extremity. /MILANA Voice ID: [id number] Report ID: [id number]
--- NOTE | 2018-09-11 02:40 | HP ---
Date of Admission: 09/10/2018 Chief Complaint: Fall and hip pain. History Of Present Illness: This is a 78-year-old female patient who lives at home with her , and she decided to go visit daughter at her house, and as she was walking in her daughter's garage, there was a wet spot on the garage floor and she slipped, lost her balance, and fell down. Daughter was inside the house and she heard the patient screaming and she came to check on her and the patient was brought into emergency room. After she was evaluated, she was admitted to the hospital under my service with a diagnosis of hip fracture. I saw her this afternoon and daughter was present with he r at bedside. The patient denies any pain or injury anywhere else. Allergies: TO SULFA. Medications: Amlodipine 5 mg 2 times a day, bupropion 300 mg p.o. daily, cyclobenzaprine 5 mg at bed time as needed for headache, levothyroxine 75 mcg p.o. daily, Mirapex 0.25 mg every day at bedtime as needed, multivitamin daily, propranolol 10 mg p.o. every morning, Risperdal 1 mg at bedtime, trazodo ne 50 mg takes 3 tablets at bedtime, valsartan 80 mg daily, vitamin B12 500 mcg daily, vitamin D3 400 units p.o. daily. Review of Systems: Musculoskeletal: As mentioned above. All other systems reviewed and negative. Past Medical History: Hypertension, chronic kidney disease stage 3, hypothyroidism, osteoporosis, hy perlipidemia, impaired fasting glucose, diverticulosis, gastroesophageal reflux disease, bipolar diso rder, allergic rhinitis. Past Surgical History: Significant for basal cell carcinoma of skin over nose and had surgery for re moval of that, cholecystectomy, hysterectomy. Family History: Significant for brain tumor, osteoarthritis, and father had squamous cell cancer. Social History: Negative for smoking, alcohol use. Physical Examination: Vital Signs: When she first came into emergency room, temperature 97, pulse 63, respiratory rate 16, blood pressure 115/63, oxygen saturation 97%, height 5 feet 4 inches, weight 150 pounds. General: Awake, alert, oriented, not in distress. HEENT: Head atraumatic, normocephalic. Conjunctivae nonerythematous. Sclerae white. Mouth, no thr ush or edema noted. Ears/Nose, no mass, lesion, discharge noted. Neck: Supple. No JVD, lymph nodes, bruit, thyromegaly noted. Lungs: Bilateral good equal air entry. Clear to auscultation. No rhonchi. No rales. Heart: Normal heart sounds, no murmur or gallop. Abdomen: Soft, bowel sounds normal. No guarding, rigidity, tenderness, mass, hepatosplenomegaly, dis tention, or bruit noted. Extremities: No leg edema. No calf tenderness. Skin: No rash, ulcer, cellulitis. Lymphatics: No lymph node enlargement in neck, supraclavicular, infraclavicular region. Neuro: No focal neurological deficit. Chest: Unremarkable. External Genitalia: Deferred. Rectal: Deferred. Laboratory Data: White count 11.8, hemoglobin 12, platelets 328. INR 0.92. Sodium 143, potassium 4 , chloride 113, bicarb 23, BUN 18, creatinine 1.01, glucose 113. Hip x-ray shows right femoral neck fracture. Chest x-ray, no acute cardiopulmonary changes. Electrocardiogram, normal sinus rhythm. N o acute ST-T changes. Impression: 1.Right femoral neck fracture. 2.Osteoporosis, senile. 3.Hypertension. 4.Hyperlipidemia. 5.Impaired fasting glucose. 6.Diverticulosis. 7.Hypothyroidism. 8.Depression. 9.Bipolar disorder. Plan: Admit patient to hospital for further evaluation and management of this problem. The patient is appropriate for inpatient and is expected to spend 2 midnights in hospital. We will go ahead and continue home medications per order. SCD will be applied for DVT prophylaxis and we will give pain m edication per order. Orthopedic consultation will be requested from Dr. Sears. The patient will have surgery done tomorrow. She is at acceptable risk from planned surgery and SCD will be applied for DVT prophylaxis. I will see her tomorrow for followup. Details and plan of treatment discussed with her. After I saw her, nurse contacted and informed me that morphine 4 mg which was ordered ever y 4 hours was not enough to control her pain, so I have changed the order to morphine 4 mg every 2 ho urs as needed. We will keep her n.p.o. after midnight, but today we will go ahead and give regular d iet. REN/MODL Voice ID: [id number]
[2018-09-11 06:12] LABS: Absolute Lymphocytes (CBC) 0.6 K/uL (0.7-4.9); Basophils % 0.4 % (0-1.3); Eosinophils % 2.7 % (0-4.4); Hematocrit 37.3 % (36.0-45.0); MPV 7.3 fL (7.6-11.3); Monocytes % 8.9 % (3.3-12.3); RBC Red Blood Cell Count 4.14 M/uL (3.86-4.86)
[2018-09-11] MEDS: LEVOTHYROXINE SOD 0.075 MG TAB PO SCH ×2 (06:12→08:30)
[2018-09-11 06:15] LABS: Potassium 3.9 mmol/L (3.5-5.1)
[2018-09-11] MEDS ORDERED: CEFAZOLIN/SWI 1gm 1 GM/10 ML SYR ONE (08:32)
[2018-09-11] MEDS ORDERED: buPROPion HCl 100 MG TAB PO SCH (09:00)
[2018-09-11] MEDS ORDERED: AMLODIPINE 5 MG TAB PO SCH (09:00)
[2018-09-11] MEDS ORDERED: TRANEXAMIC ACID 1,000 MG in NA CHLORIDE 0.9% 50 ML IV ONE (09:00)
[2018-09-11] MEDS ORDERED: PROPRANOLOL HCL 10 MG TAB PO SCH (09:00)
[2018-09-11] MEDS ORDERED: ROCURONIUM 50 MG/5 ML VIAL IV ONE (09:56)
[2018-09-11] MEDS ORDERED: PROPOFOL 200 MG/20 ML VIAL IV ONE (09:56)
[2018-09-11] MEDS ORDERED: LIDOCAINE 2% MPF 5 ML VIAL ONE (09:56)
[2018-09-11] MEDS ORDERED: Phenylephrine HCl 10 MG/ML 1 ML VIAL ONE (09:57)
[2018-09-11] MEDS ORDERED: FENTANYL CITR 100 MCG/2 ML ONE (09:57)
[2018-09-11] MEDS ORDERED: GLYCOPYRROLATE 0.2 MG/ML SYR ONE ×3 (10:33→11:55)
[2018-09-11] MEDS ORDERED: ONDANSETRON 4 MG/2 ML VIAL ONE (11:02)
[2018-09-11] MEDS ORDERED: KETOROLAC 30 MG/ML INJ ONE (11:02)
[2018-09-11] MEDS ORDERED: DEXAMETHASONE 10 MG/ML VIAL ONE (11:03)
[2018-09-11] MEDS ORDERED: Ringers Lactate 1,000 ML IV ONE ×2 (11:13→13:10)
[2018-09-11] MEDS: NA CHLORIDE 0.9% 1,000 ML IV SCH (11:51)
[2018-09-11] MEDS ORDERED: NEOSTIGMINE 1 MG/ML -10 ML VIAL ONE (11:56)
--- NOTE | 2018-09-11 12:04 | PN ---
Date of Progress Note: 09/11/2018 Subjective: The patient was seen this morning for followup. She was in surgery holding area prior t o her surgery. Daughter was at bedside. Vital signs reviewed. She denied any complaints. Overnigh t, her pain was well controlled with morphine every 2 hours p.r.n. per order, because every 4-hour mo rphine was not helping her. So, we change it to every 2 hours and that actually helped to control he r pain very well. No nausea, no vomiting. Objective: Vital Signs: Reviewed. HEENT: Unremarkable. Lungs: Clear to auscultation. Heart: Sounds normal. Abdomen: Soft. Bowel sounds normal. No guarding, rigidity, tenderness, or distention. Extremities: No leg edema. Laboratory Data: White count 11.3, hemoglobin 12.5, platelets 306. Sodium 140, potassium 3.9, chlor jarrod 108, bicarb 27, BUN 15, creatinine 0.9, glucose 117. Impression: 1.Right hip femoral neck fracture. 2.Osteoporosis, senile. 3.Hypertension. 4.Impaired fasting glucose. Plan: The patient will go ahead and have surgery today. Postoperatively, we will start DVT prophyla xis with SCD and Lovenox at appropriate time. Continue current pain medication and other home medica tions per order. I will see her tomorrow for followup. Details were discussed with the patient and the patient's daughter, who was at bedside. REN/MODL Voice ID: [id number] Report ID: [id number]
--- NOTE | 2018-09-11 12:38 | P.BOP ---
Preoperative diagnosis: right femoral neck fracture Postoperative diagnosis: same Primary procedure: right hip bibolar hemiarthoplasty Estimated blood loss: 50 ccs Anesthesia: General Complications: None Transferred to: Recovery Room Condition: Good
--- NOTE | 2018-09-11 13:23 | OP ---
Date of Procedure: 09/11/2018 Surgeon: Jem Sears MD Preoperative Diagnosis: Right displaced femoral neck fracture. Postoperative Diagnosis: Right displaced femoral neck fracture. Procedure: Right hip bipolar hemiarthroplasty, which was cemented using Biomet implants. Estimated Blood Loss: 50 cc. Complications: None. Specimens: No pathology specimen sent other than the head. Indications For Operation: Ms. Leahy is a 78-year-old female who unfortunately fell injuring her rig ht lower extremity. She was seen in the Emergency Department where she was ruled out for other injur ies; however, x-rays demonstrated a displaced right femoral neck fracture. On seeing her in the room , she had pain isolated to the right hip. Review of x-rays reveal a displaced right femoral neck fra cture. I discussed with the patient and family different options including open reduction and international marketing specialist al fixation, total hip arthroplasty, bipolar hemiarthroplasty. At this time bipolar hemiarthroplasty was selected and risks, benefits, and alternatives of this procedure as well as others were discusse d. They state they understand things as presented. Description Of Procedure: The patient was taken to the operating room and placed in supine position. General anesthesia was obtained by the staff. Following this, she was then moved onto the operativ e table. She was then rolled left side down with an axillary roll. Her right lower extremity was th en prepped and draped in usual sterile fashion for the procedure. This was followed by a standard po sterior lateral incision, which was taken down carefully through skin and soft tissues, meticulous he mostasis being maintained using Bovie electrocautery. This led down to the fascia and a stab wound w as made in the fascia. Gluteal tendon was palpated to ensure the fascial incision in the correct pos ition. It was then taken up until the fibers of gluteus addy were encountered. These were then d ivided with finger pressure. The sciatic nerve was then palpated with a finger and protected through out the case. The external rotators and capsule were then taken down carefully and tagged for later repair. This allowed for visualization of the hip. Hip itself was broken. It was quite vertical an d the base of the fracture was fairly short. Therefore a slightly less than normal made neck cut is done removing the remnants of the fractured neck. This was followed by removal of the femoral head u sing a corkscrew. Soft tissues were removed from inside the acetabulum. Hemostasis obtained. The h ead was then sized using ring gauges and a 45 was selected. Attention was then turned back to the fe mur where a box order person used, it was followed by reaming. A cylindrical reamer size [address] d to the 0 point, however, with some difficulty. This was followed by sequential broaching, a size 1 0 was almost completely seated. However, size 11 was felt to be too large. Decision was made to mov e forward with a size 7 femoral stem to avoid overstuffing the femur. The femur was then copiously i rrigated until it was clean. A bone plug was placed to appropriate depth. It was again irrigated an d a size 7 cemented stem was then placed in proper version and held in place until hardened. This wa s followed by placement of trials. A +6 appeared to be the most effective for keeping the hip stable , and it was stable with full flexion, full adduction, and approximately 45 degrees internal rotation . There was no lateral Shuck with tiny amount of movement with longitudinal traction. This was yosef cted as the size and she does go to full extension without difficulty. The wound was then copiously irrigated and the final ball was then put in place. It was then relocated and checked for stability and is again stable on the above parameters. The external rotators and capsule were then repaired ba ck to the greater trochanter using bone tunnels, this was followed by closure of the fascia in watert ight fashion using heavy Vicryl sutures, followed by closure of the skin using Vicryl, followed by st radha. The patient was then placed in Aquacel dressing, awakened and taken to recovery room in good condition. There were no complications. /MILANA Voice ID: [id number] Report ID: [id number]
[2018-09-11] MEDS ORDERED: CEFAZOLIN/NS 1gm 1 GM/50 ML BAG IVPB SCH (17:00)
[2018-09-11] MEDS: CEFAZOLIN/SWI 1gm 1 GM/10 ML SYR IV SCH (17:04)
[2018-09-11] MEDS: DESYREL 50 MG PO SCH (20:15)
[2018-09-11] MEDS: NORVASC 5 MG PO SCH (20:15)
[2018-09-11] MEDS: FAMOTIDINE 20 MG TAB PO SCH (20:15)
[2018-09-11] MEDS: MIRAPEX 0.25 MG PO SCH (20:15)
[2018-09-12] MEDS: CEFAZOLIN/SWI 1gm 1 GM/10 ML SYR IV SCH ×3 (00:09→16:22)
[2018-09-12] MEDS: NA CHLORIDE 0.9% 1,000 ML IV SCH ×2 (00:09→07:51)
[2018-09-12 06:14] LABS: Absolute Lymphocytes (CBC) 0.4 K/uL (0.7-4.9); Basophils % 0.2 % (0-1.3); Hematocrit 33.7 % (36.0-45.0); Lymphocytes % 3.7 % (15.3-44.8); MPV 7.7 fL (7.6-11.3); Monocytes % 9.8 % (3.3-12.3)
[2018-09-12 06:23] LABS: Magnesium 2.1 mg/dL (1.8-2.4); Potassium 4.6 mmol/L (3.5-5.1)
[2018-09-12 08:28] LABS: Blood Morphology Comment NOT SEEN (NOT SEEN); Platelet Estimate ADEQ
[2018-09-12] MEDS: ENOXAPARIN 40 MG/0.4 ML SQ SCH (08:31)
[2018-09-12] MEDS: NORVASC 5 MG PO SCH ×2 (08:33→20:11)
[2018-09-12] MEDS: WELLBUTRIN 300 MG PO SCH (08:33)
[2018-09-12] MEDS: INDERAL PO SCH (08:34)
--- NOTE | 2018-09-12 11:42 | PN ---
Date of Progress Note: 09/12/2018 Subjective: The patient was seen this morning for followup. No new complaints or problems reported by her. She was sitting in the wheelchair, her daughter and physical therapist were with her. Objective: Vital Signs: Reviewed. HEENT: Unremarkable. Lungs: Clear to auscultation. Heart: Heart sounds normal. Abdomen: Soft. Extremities: No leg edema. Laboratory Data: White count 11.3, hemoglobin 10.8, platelets 260. Sodium 141, potassium 4.6, chlor jarrod 110, bicarb 24, BUN 18, creatinine 1, glucose 101. Impression: 1.Right hip femoral neck fracture. 2.Hypertension. 3.Anemia due to acute blood loss. 4.Osteoporosis. Plan: We will go ahead and continue Lovenox for DVT prophylaxis, which was started today. We will m onitor the patient's hemoglobin. We will consult occupational therapy and rehab, and I will see her tomorrow for followup. Stool softener will be given per order. REN/MODL Voice ID: [id number] Report ID: [id number]
[2018-09-12] MEDS: MIRAPEX 0.25 MG PO SCH (20:11)
[2018-09-12] MEDS: DESYREL 50 MG PO SCH (20:11)
[2018-09-12] MEDS: FAMOTIDINE 20 MG TAB PO SCH (20:12)
[2018-09-12] MEDS: DOCUSATE NA/SENNA CONC 1 TAB PO SCH (20:12)
--- NOTE | 2018-09-12 23:08 | PN ---
Date of Progress Note: 09/12/2018 The patient is seen today. Her hemoglobin is 10.8. She has been afebrile. EHL, tibialis anterior, plantar flexion are all strong. Her dressing is clean, dry, and intact. I spoke with Physical Therfiliberto marrufo. They say that she is walking really quite well. I think at this time the plan is for anticoagul ation as needed or determined by the hospitalist. Also, [facility] All the patient's questions have otherwise been answered today. KAELA Voice ID: [id number] Report ID: [id number]
[2018-09-13 05:59] LABS: Absolute Lymphocytes (CBC) 0.8 K/uL (0.7-4.9); Basophils % 0.5 % (0-1.3); Hematocrit 31.4 % (36.0-45.0); MPV 7.5 fL (7.6-11.3); Monocytes % 10.9 % (3.3-12.3); RBC Red Blood Cell Count 3.51 M/uL (3.86-4.86)
[2018-09-13 06:09] LABS: Magnesium 2.2 mg/dL (1.8-2.4); Potassium 4.1 mmol/L (3.5-5.1)
[2018-09-13] MEDS ORDERED: BISACODYL 10 MG RECTAL SUPP PR ONE (08:02)
[2018-09-13] MEDS: INDERAL PO SCH (09:03)
[2018-09-13] MEDS: WELLBUTRIN 300 MG PO SCH (09:04)
[2018-09-13] MEDS: NORVASC 5 MG PO SCH ×2 (09:05→21:21)
[2018-09-13] MEDS: ENOXAPARIN 40 MG/0.4 ML SQ SCH (09:06)
[2018-09-13] MEDS: MORPHINE 4 MG/ML SYR IV PRN ×2 (10:27→21:58)
--- NOTE | 2018-09-13 11:51 | PN ---
Date of Progress Note: 09/13/2018 Subjective: The patient was seen this morning for followup. She was sleeping easily, arousable, not in any distress. Has not had a bowel movement since her surgery. Pain is well controlled. Denies any abdominal pain, nausea, vomiting. Objective: Vital Signs: Reviewed HEENT: Examination unremarkable. Lungs: Clear to auscultation. Heart: Sounds normal. Abdomen: Soft. Bowel sounds normal. No guarding, rigidity, tenderness, or distention. Extremities: No leg edema. Laboratory Data: White count 9.8, hemoglobin 10.5, platelets 243. Sodium 143, potassium 4.1, chlori de 109, bicarb 27, BUN 15, creatinine 0.90, glucose 108, magnesium 2.2. Impression: 1.Right hip femoral neck fracture. 2.Constipation. 3.Acute blood loss anemia. 4.Hypertension. Plan: We will go ahead and give Dulcolax rectal suppository. Remove Yu catheter. Continue other current medications including DVT prophylaxis. Physical therapy to continue to work with the nikita t. Pain medication seems to be helping her very well and we will plan to discharge her to go to [facility] rehab facility once she is accepted. The patient is medically stable for transfer. REN/MODL Voice ID: [id number] Report ID: [id number]
[2018-09-13] MEDS: DOCUSATE NA/SENNA CONC 1 TAB PO SCH (21:00)
[2018-09-13] MEDS: FAMOTIDINE 20 MG TAB PO SCH (21:19)
[2018-09-13] MEDS: MIRAPEX 0.25 MG PO SCH (21:21)
[2018-09-13] MEDS: DESYREL 50 MG PO SCH (21:21)
[2018-09-14] MEDS: WELLBUTRIN 300 MG PO SCH (09:35)
[2018-09-14] MEDS: INDERAL PO SCH (09:35)
[2018-09-14] MEDS: NORVASC 5 MG PO SCH ×2 (09:35→20:10)
[2018-09-14] MEDS: ENOXAPARIN 40 MG/0.4 ML SQ SCH (09:36)
[2018-09-14] MEDS: HYDROCODONE/APAP 5/325 MG TAB PO PRN (09:38)
[2018-09-14] MEDS: FAMOTIDINE 20 MG TAB PO SCH (20:09)
[2018-09-14] MEDS: DESYREL 50 MG PO SCH (20:11)
[2018-09-14] MEDS: MIRAPEX 0.25 MG PO SCH (20:12)
[2018-09-14] MEDS: DOCUSATE NA/SENNA CONC 1 TAB PO SCH (21:00)
--- NOTE | 2018-09-15 02:08 | PN ---
Date of Progress Note: 09/14/2018 Subjective: The patient was seen this morning for followup. No new complaints or problems reported by patient. She was lying in bed, not in distress. Objective: Vital Signs: Reviewed. HEENT: Unremarkable. Lungs: Clear to auscultation. Heart: Sounds normal. Abdomen: Soft. Bowel sounds normal. No guarding, rigidity, tenderness, or distention. Extremities: No leg edema. Impression: 1.Right femoral neck fracture. 2.Acute blood loss anemia. 3.Hypertension. Plan: We will continue current medications. Continue current DVT prophylaxis using Lovenox. We are waiting for insurance company's approval for the patient to go to inpatient rehab floor once the arr angements gets completed. The patient will be going to rehab floor. We will see her tomorrow for gaby watt. REN/MODL Voice ID: [id number] Report ID: [id number]
[2018-09-15] MEDS: WELLBUTRIN 300 MG PO SCH (10:34)
[2018-09-15] MEDS: NORVASC 5 MG PO SCH ×2 (10:35→21:05)
[2018-09-15] MEDS: INDERAL PO SCH (10:35)
[2018-09-15] MEDS: ENOXAPARIN 40 MG/0.4 ML SQ SCH (10:37)
[2018-09-15] MEDS ORDERED: ONDANSETRON 4 MG (ODT) TAB PO PRN (11:52)
[2018-09-15] MEDS: HYDROCODONE/APAP 5/325 MG TAB PO PRN (14:49)
[2018-09-15] MEDS: DESYREL 50 MG PO SCH (21:02)
[2018-09-15] MEDS: MIRAPEX 0.25 MG PO SCH (21:03)
[2018-09-15] MEDS: DOCUSATE NA/SENNA CONC 1 TAB PO SCH (21:06)
[2018-09-15] MEDS: FAMOTIDINE 20 MG TAB PO SCH (21:06)
--- NOTE | 2018-09-16 00:13 | PN ---
Date of Progress Note: 09/15/2018 Subjective: The patient was seen this morning for followup. No new complaints or problems reported by patient. Lying in bed, not in distress. Objective: Vital Signs: Reviewed. HEENT: Examination unremarkable. Lungs: Clear to auscultation. Heart: Sounds normal. Abdomen: Soft. Bowel sounds normal. No guarding, rigidity, tenderness, or distention. Extremities: No leg edema. Impression: 1.Right hip femoral neck fracture. 2.Acute blood loss anemia. 3.Hypertension. 4.Constipation. Plan: We will go ahead and continue current DVT prophylaxis, continue other current medical manageme nt. We will go ahead and have Physical Therapy continue to work with the patient. Social Service is trying to get approval for inpatient rehab. Once that is obtained, we will be able to transfer her to rehab facility with all current orders. We will go ahead and give her some Dulcolax rectal suppos itory today or tomorrow. REN/MODL Voice ID: [id number] Report ID: [id number]
[2018-09-16] MEDS: ENOXAPARIN 40 MG/0.4 ML SQ SCH (08:04)
[2018-09-16] MEDS: WELLBUTRIN 300 MG PO SCH (08:05)
[2018-09-16] MEDS: INDERAL PO SCH (08:06)
[2018-09-16] MEDS: NORVASC 5 MG PO SCH ×2 (08:07→21:00)
[2018-09-16] MEDS: HYDROCODONE/APAP 5/325 MG TAB PO PRN (11:00)
[2018-09-16] MEDS: FAMOTIDINE 20 MG TAB PO SCH (21:17)
[2018-09-16] MEDS: DOCUSATE NA/SENNA CONC 1 TAB PO SCH (21:17)
[2018-09-16] MEDS: DESYREL 50 MG PO SCH (21:19)
[2018-09-16] MEDS: MIRAPEX 0.25 MG PO SCH (21:20)
--- NOTE | 2018-09-17 00:10 | PN ---
Date of Progress Note: 09/16/2018 Subjective: The patient was seen this morning for followup. No new complaints or problems reported by her. Has not had a bowel movement since last bowel movement on Thursday or Thursday. Objective: Vital Signs: Reviewed. HEENT Examination: Unremarkable. Lungs: Clear to auscultation. Heart: Sounds normal. Abdomen: Soft. Bowel sounds normal. No guarding, rigidity, tenderness, or distention. Extremities: No leg edema. Impression: 1.Right femoral neck fracture. 2.Anemia due to acute blood loss. 3.Constipation. 4.Hypertension. Plan: We will go ahead and continue current DVT prophylaxis. The patient's pain is well controlled with oral pain medications. We will go ahead and give Dulcolax rectal suppository today and Physical Therapy to continue to work with the patient. Around 3:45 p.m., [employer] contacted me with in formation regarding the patient's insurance company denied her for inpatient rehab benefit and around that time they provided me with reference number and telephone number to call for [id number] revie w process and, soon after I got that information, I called, left a message for insurance company and probably within 20 minutes or so insurance [employer] called and informed me that it was too late for ap peal process as the time already had and we had only until noontime today for this appeal pro cess, and I explained it to them that was not acceptable because we did not have enough time and by t he time I was notified by [employer], it was 3:45 p.m. or so, but we did not get any positive res ponse from the insurance company regarding this. So now, after that, I did contact [employer] an d they will communicate with family member regarding next plan of action which will be probably for p atient to go to nursing home facility or home with home health and home physical therapy. I will see her tomorrow for followup. REN/MODL Voice ID: [id number] Report ID: [id number]
[2018-09-17 06:11] LABS: Absolute Lymphocytes (CBC) 1.1 K/uL (0.7-4.9); Basophils % 0.6 % (0-1.3); Eosinophils % 5.7 % (0-4.4); Hematocrit 30.4 % (36.0-45.0); Lymphocytes % 12.6 % (15.3-44.8); MPV 7.2 fL (7.6-11.3); Monocytes % 10.7 % (3.3-12.3); RBC Red Blood Cell Count 3.42 M/uL (3.86-4.86)
[2018-09-17 06:15] LABS: Albumin 2.2 g/dL (3.4-5.0); Bilirubin Total 0.5 mg/dL (0.2-1.0); Protein, Total 5.3 g/dL (6.4-8.2)
[2018-09-17] MEDS: WELLBUTRIN 300 MG PO SCH (09:05)
[2018-09-17] MEDS: NORVASC 5 MG PO SCH (09:06)
[2018-09-17] MEDS: INDERAL PO SCH (09:06)
[2018-09-17] MEDS: ENOXAPARIN 40 MG/0.4 ML SQ SCH (09:08)
--- NOTE | 2018-09-18 07:22 | DS ---
Date of Discharge: 09/17/2018 Disposition: The patient will be discharged to go home. Physical Examination: HEENT: Unremarkable. Lungs: Clear to auscultation. Heart: Sounds normal. Abdomen: Soft. Bowel sounds normal. No guarding, rigidity, tenderness, or distention. Extremities: No leg edema. Discharge Medications And Instructions: 1.Continue all prior home medications. 2.Fergon 1 tablet p.o. daily for 2 months. 3.Xarelto 10 mg p.o. daily for 3 weeks. 4.Tylenol with codeine No. 3 one tablet p.o. q.6 hours p.r.n. pain. Prescription given to daughter for #30 with 1 refill. 5.The patient is to use Tylenol 500 mg p.o. 4 times a day as needed for pain and the patient to use that Tylenol for mild pain and if that is not enough, then to use prescription medicine, which is Tyl enol with codeine. 6.Follow up with Dr. Sears next week. 7.Follow up at my office in 1 month. Hospital Course: This is a 78-year-old female patient, who fell down and was brought into the emerge ncy room. After she was evaluated in the ER, she was admitted to the hospital with right femoral nec k fracture. The patient was visiting her daughter and while she was walking in her daughter's garage , there was a wet floor and she slipped on a wet floor. Further evaluation in the emergency room rev ealed presence of right hip femoral neck fracture. Dr. Sears from Orthopedic Surgery was consult ed and the patient had surgery done day after admission. The patient did very well intraoperatively and postoperatively. She has participated well with physical therapy and she had some constipation p roblem that has been relieved with some stool softener, laxative type of medication. She had some ac lucia blood loss anemia, but did not require any blood transfusion and her hemoglobin has remained stab le. During this hospitalization, she received DVT prophylaxis using Lovenox and we did request a soc ial service consult and rehab consult. The patient's insurance company refused to approve any inpati ent rehab benefit and today I talked to the patient's daughter. We discussed about possible option o f either going home versus going to assisted facility. Considering the patient's improvement, the patient's family and the patient, they both feel comfortable going home, they have 24 hour care at home, and I feel comfortable her going home as well. I did talk to the patient in detail today re garding precautions that she needs to take to avoid any fall and injury. Laboratory Data Done During This Hospitalization: Initial white count 11.8, hemoglobin 12, platelets 328. Her hemoglobin was 10.8 on 09/12/2018, that was day after surgery. Last hemoglobin today is 1 0.2, WBC 8.8, platelets 313. Her last chemistry from today with sodium 142, potassium 4, chloride 10 9, bicarb 28, BUN 21, creatinine 0.93, glucose 103. Liver function tests unremarkable. Final Diagnoses: 1.Right hip femoral neck fracture. 2.Acute blood loss anemia. 3.Hypertension. 4.Osteoporosis, senile. 5.Hyperlipidemia. 6.Impaired fasting glucose. 7.Diverticulosis. 8.Constipation. 9.Hypothyroidism. 10.Depression. 11.Bipolar disorder. REN/MODL Voice ID: [id number] Report ID: [id number]
== END 2018-09-17 13:48 | disposition home health service (06) | DRG 470 ==
LOC: ER 12:02 → ERHOLD 13:22 → 2ND 14:43 → 4TH 09-16 20:30
PROVIDERS: ADMIT Internal Medicine; ATTEND Internal Medicine
PROC: 0SRR0J9 Replacement of Right Hip Joint, Femoral Surface with Synthetic Substitute, Cemented, Open Approach (ICD-10-PCS; principal; 2018-09-11 08:00)
DX: S72.001A Fracture of unspecified part of neck of right femur, initial encounter for closed fracture (principal); D62 Acute posthemorrhagic anemia; W01.0XXA Fall on same level from slipping, tripping and stumbling without subsequent striking against object, initial encounter; Y93.01 Activity, walking, marching and hiking; Y92.015 Private garage of single-family (private) house as the place of occurrence of the external cause; I12.9 Hypertensive chronic kidney disease with stage 1 through stage 4 chronic kidney disease, or unspecified chronic kidney disease; N18.3 Chronic kidney disease, stage 3 (moderate); E03.9 Hypothyroidism, unspecified; M81.0 Age-related osteoporosis without current pathological fracture; K21.9 Gastro-esophageal reflux disease without esophagitis; F31.9 Bipolar disorder, unspecified; E78.5 Hyperlipidemia, unspecified; R73.01 Impaired fasting glucose; K57.90 Diverticulosis of intestine, part unspecified, without perforation or abscess without bleeding; K59.00 Constipation, unspecified; Z85.828 Personal history of other malignant neoplasm of skin; Z88.2 Allergy status to sulfonamides
CPT/HCPCS: 36415; 51702; 71045; 80048; 80053; 83735; 85025; 85610; 85730; 88305; 88311; 93005; 94760; 96374; 96375; 97110; 97116; 97163; 97166; 97530; 99285; J0690; J1100; J1170; J1650; J2370; J2405; J2704; J2710; J3010; J7030

== ENCOUNTER 2019-04-14 16:11 | Observation (INO) | payer OTHER ==
[2019-04-14 17:00] VITALS: BMI 25.4
[2019-04-14 18:21] LABS: Absolute Lymphocytes (CBC) 1.8 K/uL (0.7-4.9); Basophils % 0.3 % (0-1.3); Hematocrit 33.9 % (36.0-45.0); Lymphocytes % 22.5 % (15.3-44.8); MPV 7.4 fL (7.6-11.3); RBC Red Blood Cell Count 4.13 M/uL (3.86-4.86)
--- NOTE | 2019-04-14 18:42 | RAD REPORT ---
EXAM DESCRIPTION: RAD - Chest Pa And Lat (2 Views) - 04/14/2019 6:38 pm CLINICAL HISTORY: dyspnea Chest pain. COMPARISON: Chest Single View dated 09/10/2018; Chest Single View dated 06/10/2016; CHEST SINGLE VIEW dated 02/18/2014; CHEST SINGLE VIEW dated 10/04/2009 FINDINGS: The lungs are mildly hyperexpanded but clear. The heart is upper limit of normal in size. Moderate axial hiatal hernia.
[2019-04-14 18:43] LABS: Albumin 3.4 g/dL (3.4-5.0); Bilirubin Total 0.4 mg/dL (0.2-1.0); Magnesium 2.2 mg/dL (1.8-2.4); Protein, Total 6.5 g/dL (6.4-8.2)
[2019-04-14] MEDS ORDERED: ENOXAPARIN 40 MG/0.4 ML SQ ONE (19:42)
[2019-04-14] MEDS: NA CHLORIDE 0.9% 1,000 ML IV SCH (20:52)
[2019-04-14 21:50] VITALS: O2SAT 98
[2019-04-14 22:16] LABS: Urine Appearance CLEAR; Urine Bilirubin NEGATIVE (NEG); Urine Blood NEGATIVE (NEG); Urine Color YELLOW; Urine Glucose NEGATIVE (NEG); Urine Protein NEGATIVE (NEG); Urine Specific Gravity <=1.005 (1.005-1.030); Urine Urobilinogen 0.2 mg/dL (0.2-1.0)
[2019-04-14 22:20] LABS: Urine Microscopic Reflex NO UMIC
--- NOTE | 2019-04-15 00:17 | HP ---
Date of Admission: 04/14/2019 Chief Complaint: Shortness of breath. History Of Present Illness: This is a 78-year-old very pleasant female patient, came into office tod [place] with her daughter with shortness of breath complaint. Her shortness of breath problem started gladys roximately 2 weeks ago and it has gotten worse over a period of last 2 weeks. Her shortness of breat h is now almost continuous given when she is sitting, not doing any activity but talking causes her t o have some shortness of breath and it tends to get lot worse when she gets up and walks around in [facility]. She feels weak, tired, little bit dizzy at times with this shortness of breath. No recent travel. No recent febrile illness. No expectoration or hemoptysis. She has little bit dry cough. No nasal congestion. No chest pain. No diaphoresis. No fall or injury. No history of any leg swel ling. No prior history of DVT or pulmonary embolism. When I saw the patient at office, she was obvi ously having some difficulty breathing where she was using accessory muscles of respiration while she was sitting and talking to me. Her room air oxygen saturation was ranging between 83% to 85% and af ter I evaluated her, decision was made to admit her to hospital. Allergies: TO SULFA, CAUSING RASH. Medications: List reviewed. Review of Systems: Respiratory: As mentioned above. All other systems reviewed and negative. Past Medical History: Significant for macular degeneration; allergic rhinitis; hypothyroidism; impai red fasting glucose; hypertension; hyperlipidemia; chronic kidney disease, stage 3; diverticulosis; d epression; osteoporosis. Past Surgical History: Cholecystectomy and hysterectomy. Family History: Father had skin cancer. Mother had brain cancer. Social History: Negative for smoking and alcohol use. Physical Examination: Vital Signs: When I saw her at office, blood pressure 128/79, pulse 61, respiratory rate 15, tempera ture 98.5, weight 148.2 pounds, oxygen saturation 83% on room air, height 64 inches. General: Awake, alert, oriented, not in distress. HEENT: Head atraumatic, normocephalic. Conjunctivae nonerythematous. Sclerae white. Mouth, no thr ush or edema noted. Ears/Nose, no mass, lesion, discharge noted. Neck: Supple. No JVD, lymph nodes, bruit, thyromegaly noted. Lungs: Patient using accessory muscles of respiration while sitting and talking. Heart: Normal heart sounds, no murmur or gallop. Abdomen: Soft, bowel sounds normal. No guarding, rigidity, tenderness, mass, hepatosplenomegaly, dis tention, or bruit noted. Extremities: No leg edema. No calf tenderness. Skin: No rash, ulcer, cellulitis. Lymphatics: No lymph node enlargement in neck, supraclavicular, infraclavicular region. Neuro: No focal neurological deficit. Chest: Unremarkable. External Genitalia: Deferred. Rectal: Deferred. Laboratory Data: White count 8.1, hemoglobin 11.2, platelets 367. D-dimer 371. Sodium 142, potassi um 4, chloride 112, bicarb 21, BUN 22, creatinine 1.33, glucose 92. Liver function tests unremarkabl e. Procalcitonin less than 0.05. Lactic acid 1.2. Chest x-ray shows moderate hiatal hernia. No in filtrative changes of emphysema noted on chest x-ray film, but no consolidation. No pleural effusion . Impression: 1.Dyspnea. 2.Rule out pulmonary embolism. 3.Chronic kidney disease, stage 3. 4.Anemia due to chronic kidney disease. 5.Hypertension. 6.Hyperlipidemia. 7.Diverticulosis. 8.Hypothyroidism. 9.Impaired fasting glucose. 10.Depression. 11.Osteoporosis. 12.Allergic rhinitis. Plan: 1.Admit patient to hospital for further evaluation and management of this problem. Patient is appro priate for inpatient and is expected to spend 2 midnights in hospital. 2.After I evaluated her, she was admitted to the hospital. Preliminary test results including labs, chest x-ray results reviewed as mentioned above. I have ordered some IV fluid hydration to protect her kidneys as I am planning to do CT scan of the chest per PE protocol to rule out pulmonary embolis m. It will be done tonight. Lovenox 40 mg subcu x1 dose was ordered and I have called patient's laith maria and discussed details with her about the test results and plan of treatment. I will see her to [facility] morning for followup. REN/MODL Voice ID: [id number]
[2019-04-15] MEDS: NA CHLORIDE 0.9% 1,000 ML IV SCH (09:20)
--- NOTE | 2019-04-15 10:21 | RAD REPORT ---
EXAM DESCRIPTION: CTA CHEST WITH CONTRAST CLINICAL HISTORY: Dyspnea COMPARISON: None. TECHNIQUE: Axial CT imaging of the thorax utilizing intravenous contrast. Reformatted multiplanar im ages obtained including reconstructed maximum intensity projection images. This exam was performed according to our departmental dose-optimization program which includes automa susi exposure control, adjustment of the mA and/or kV according to patient size and/or use of iterativ e reconstruction technique FINDINGS: PULMONARY ARTERIES: Normal caliber main pulmonary artery. No filling defect within the ri ght atrium, right ventricle, central or peripheral pulmonary arteries. HEART/GREAT VESSELS: Heart is normal in size. No pericardial effusion. Normal caliber thoracic aorta with moderate atherosclerosis. MEDIASTINUM/DARRELL: Normal appearance of the central airways. Normal esophagus. There is a large hiata l hernia with complete intrathoracic migration of the stomach. No evidence of gastric outlet obstruct ion or volvulus. LUNGS/PLEURA: There is a coarse calcification in the posterior aspect of the superior segment of the left lower lobe, 5 mm, consistent with granuloma. There is surrounding scarring. There is inferior l eft lower lobe atelectasis. There is a band of atelectasis or scar in the right middle lobe. No edema or pneumothorax. CHEST WALL/SOFT TISSUES: No axillary adenopathy. Intact sternum. There is a high-grade anterior wedg e fracture T9 which appears old. There is slight retropulsion with hyperkyphosis. UPPER ABDOMEN: Unremarkable included liver, spleen, right adrenal gland. IMPRESSION: 1. No pulmonary embolism. 2. Complete intrathoracic herniation of the stomach without gastric outlet obstruction or volvulus. A ssociated left lower lobe atelectasis. 3. Left lower lobe granuloma. Electronically signed by: Angelica Lai DO 04/15/2019 1:43 AM CIO Due to temporary technical issues with the PACS/Fluency reporting system, reports are being signed by the in house radiologist as a courtesy to ensure prompt reporting. The interpreting radiologist is f elviraly responsible for the content of the report.
[2019-04-15 12:12] VITALS: BP 133/50; TEMP 97.5
--- NOTE | 2019-04-15 14:32 | EKG ---
Test Date: 2019-04-15 Test Time: 09:22:14 [employer] Analyst: KATE MEASUREMENT RESULTS: Intervals: Rate: 69 MS: 170 QRSD: 94 QT: 388 QTc: 415 [place]: P: 61 MS: 170 QRS: -39 T: 76 INTERPRETIVE STATEMENTS: Normal sinus rhythm Left axis deviation Anterior infarct, age undetermined Abnormal ECG Compared to ECG 09/10/2018 12:43:52 Left-axis deviation now present Myocardial infarct finding now present Sinus bradycardia no longer present Sinus arrhythmia no longer present Electronically Signed On 04-15-19 14:30:47 PERSONAL ASSISTANT by Scotty Padgett
--- NOTE | 2019-04-16 02:03 | DS ---
Date of Discharge: 04/15/2019 Disposition: Discharged to go home. Physical Examination: HEENT: Unremarkable. Lungs: Clear to auscultation. Heart: Heart sounds normal. Abdomen: Soft, bowel sounds normal. No guarding, rigidity, tenderness, or distention. Extremities: No leg edema. Discharge Medications And Instructions: 1.Continue all prior home medication except do not take valsartan. 2.The patient to call office next week on Thursday to get appointment for outpatient pulmonary functio n tests and also referral to see specialist in [place] for hiatal hernia. 3.I have advised the patient to come see me for followup after pulmonary function test is done. Hospital Course: A 78-year-old female patient, who was brought into office yesterday by her daughter with 2 weeks history of increasing problem with shortness of breath. Please see dictated H and P fo r more information. After patient was evaluated in the office, she was admitted to the hospital. He r oxygen saturation at office was anywhere from 83% to 85%. After she was admitted to the hospital, routine blood work was done and chest x-ray was done. Routine blood work was unremarkable except cre atinine 1.3, which is her baseline. Her BNP and D-dimer was negative. We did obtain a CT scan of th e chest per PE protocol, which came back negative for pulmonary embolism, no acute lung findings, but it definitely showed large hiatal hernia and radiologist reported that complete intrathoracic hernia tion of the stomach without gastric-outlet obstruction or volvulus. The patient does not have any hi story of smoking either at present time or in the past. So, what we will have to do is consider if s he has any underlying COPD or not and she will benefit from outpatient pulmonary function testing, wh [facility] we will arrange it. Other problem that we need to get her evaluated for is this large hiatal her chong with entire stomach in the intrathoracic region. There is no need for emergent transfer to [facility] on because she has no evidence of volvulus. No symptoms of any pain, but I did educate the patient a nd her daughter that if she starts to have any pain, then we will definitely need to get immediate at tention. Meanwhile, what we will do is try to get her appointment to see a specialist in [place] for consideration of surgery for this large hiatal hernia and we definitely would like to see how her br eathing is after this hernia is operated on. All these details were discussed with the patient and h er daughter today. The patient also informed me that she has not taken her valsartan for last 2 brittany hs or so and considering her blood pressure at present time. I have advised her no need to restart t hat medication. Final Diagnoses: 1.Dyspnea. 2.Large hiatal hernia. 3.Chronic kidney disease, stage 3. 4.Anemia due to chronic kidney disease. 5.Hypertension. 6.Hyperlipidemia. 7.Diverticulosis. 8.Hypothyroidism. 9.Impaired fasting glucose. 10.Depression. 11.Osteoporosis. 12.Allergic rhinitis. REN/MODL Voice ID: [id number] Report ID: [id number]
== END 2019-04-15 11:52 | disposition home or self-care (01) ==
LOC: INTOOBSV 16:38 → 4TH 16:38
PROVIDERS: ADMIT Internal Medicine; ATTEND Internal Medicine
DX: R06.00 Dyspnea, unspecified (principal); K44.9 Diaphragmatic hernia without obstruction or gangrene; I12.9 Hypertensive chronic kidney disease with stage 1 through stage 4 chronic kidney disease, or unspecified chronic kidney disease; N18.3 Chronic kidney disease, stage 3 (moderate); D63.1 Anemia in chronic kidney disease; E78.5 Hyperlipidemia, unspecified; K57.90 Diverticulosis of intestine, part unspecified, without perforation or abscess without bleeding; E03.9 Hypothyroidism, unspecified; R73.01 Impaired fasting glucose; F32.9 Major depressive disorder, single episode, unspecified; J30.9 Allergic rhinitis, unspecified; Z88.2 Allergy status to sulfonamides
CPT/HCPCS: 36415; 71046; 71275; 80053; 81003; 83605; 83735; 83880; 84145; 85025; 85379; 93005; G0378; G0379; J1650; J7030; Q9967

== ENCOUNTER 2019-08-26 10:27 | Emergency (ER) | payer OTHER ==
--- OUTSIDE RECORDS SUMMARY | 2019-08-26 10:39 | XMS REPORT | Clinical Summary ---
:1940 Author Organization [facility] Address [address] [place] [address] Care Team Providers Name Role Phone Bridger Gross MD Primary Care Provider Allergies Active Allergy Reactions Severity Noted Date Comments Sulfa (Sulfonamide Antibiotics) Rash Low 0 Medications Medication Sig Dispensed Refills Start Date End Date Status amLODIPine (NORVASC) 5 Take 5 mg by 0 Active mg tablet mouth daily. buPROPion XL Take 300 mg by 0 Ac tive (WELLBUTRIN XL) 300 MG mouth daily. 24 hr tablet propranolol (INDERAL) Take 10 mg by 0 Active 10 MG tablet mouth 3 (three) times a day. cholecalciferol, Take by mouth. 0 Active vitamin D3, (VITAMIN D3 ORAL) cyanocobalamin/cobamam Place 7,500 mcg 0 Active jarrod (B12 SL) under the tongue. vit C/vit E Take by mouth. 0 Act komal ac/lut/copper/zinc (PRESERVISION LUTEIN ORAL) vitamin E 400 UNIT Take 400 Units 0 Active capsule by mouth daily. vitamin B complex (B Take by mouth. 0 Active COMPLEX 1 ORAL) TURMERIC ORAL Take by mouth. 0 A ctive Lactobacillus Take by mouth. 0 A ctive acidophilus (PROBIOTIC ORAL) multivitamin with Take by mouth. 0 Active minerals (HAIR,SKIN AND NAILS ORAL) levothyroxine Take 75 mcg by 0 A ctive (SYNTHROID) 75 mcg mouth nightly. tablet pramipexole (MIRAPEX) Take 0.25 mg by 0 Active 0.25 MG tablet mouth nightly. trazodone HCl Take 250 mg by 0 A ctive (TRAZODONE ORAL) mouth nightly. risperiDONE Take 1 mg by 0 Activ e (RisperDAL) 1 MG mouth nightly. tablet pseudoepHEDrine Take 60 mg by 0 Active (SUDAFED) 60 MG tablet mouth every 4 (four) hours as needed for congestion. denosumab (PROLIA Inject under 0 Active SUBQ) the skin. pantoprazole Take 40 mg by 0 Act komal (PROTONIX) 40 MG EC mouth daily. tablet sennosides-docusate Take 1 tablet 5 tablet 0 05/13/201905/12 Active sodium (SENOKOT-S) by mouth 8.6-50 mg per tablet nightly as needed for constipation. acetaminophen Take 2 tablets 30 tablet 0 05/13/2019 05/18/2019 (TYLENOL) 325 MG (650 mg total) tablet by mouth every 6 (six) hours as needed for mild pain or moderate pain for up to 5 days. Active Problems Problem Noted Date Diaphragmatic hernia without obstruction or gangrene 0 05/11/2019 Encounters Date Type Specialty Care Team Description 05/11/2019 Surgery General Surgery Bossman, LAPARSCOPIC HIATAL Dhaval Mcnamara MD HERNIA REPAIR W / FUNDOPLICATION 05/11/2019 Anesthesia Event General Surgery Scott Marquis II, MD Everitt, Amanda W., SUSIE 05/11/2019 - Hospital Encounter Cardiology Bossman, Diaphragm atic hernia 05/13/2019 Dhaval Mcnamara MD without obstruc tion or gangrene 05/06/2019 Hospital Encounter Radiology Renée Watts Preop e xamination MD Darek 05/06/2019 Pre-Admit Testing Pre-Admission Boss[place], Preop exa mination Appointment Testing Dhaval Mcnamara MD (Primary Dx) 05/04/2019 Lab Lab Jayden Sutherland MD 04/25/2019 Office Visit General Surgery Boss[place], Hiatal herni a without Dhaval Mcnamara MD gangrene and obstruction (Pr imary Dx) after 08/25/2018 Social History Tobacco Use Types Packs/Day Years Used Date Never Smoker Smokeless Tobacco: Never Used Alcohol Use Drinks/Week oz/Week Comments Yes Once a year - wi ne Sex Assigned at Date Recorded Not on file Job Start Date Occupation Industry Not on file Not on file Not on file Travel History Travel Start Travel End No recent travel history available. Last Filed Vital Signs Vital Sign Reading Time Taken Comments Blood Pressure 160/77 05/13/2019 12:47 PM FLYER REPAIRER Pulse 69 05/13/2019 12:47 PM FLYER REPAIRER Temperature 36.2 C (97.2 F) 05/13/2019 12:47 PM FLYER REPAIRER Respiratory Rate 18 05/13/2019 12:47 PM FLYER REPAIRER Oxygen Saturation 95% 05/13/2019 12:47 PM FLYER REPAIRER Inhaled Oxygen Concentration - - Weight 65.3 kg (143 lb 14.4 oz) 05/11/2019 12:00 PM FLYER REPAIRER Height 162.6 cm (5' 4") 05/11/2019 12:00 PM FLYER REPAIRER Body Mass Index 24.7 05/11/2019 12:00 PM FLYER REPAIRER Plan of Treatment Health Maintenance Due Date Last Done Comments SHINGLES VACCINES (#1) 1990 65+ PNEUMOCOCCAL VACCINE (1 of 2 - PCV13) 2005 INFLUENZA VACCINE 10/22/2019 Procedures Procedure Name Priority Date/Time Associated Diagnosis Comme nts HC COMPLETE BLD COUNT Routine 05/13/2019 6:00 Re sults for this W/AUTO DIFF AM FLYER REPAIRER procedure are i n the results section. ESTIMATED GFR Routine 05/13/2019 4:00 Results fo r this AM FLYER REPAIRER procedure are i n the results section. PHOSPHORUS LEVEL Routine 05/13/2019 4:00 Results for this AM FLYER REPAIRER procedure are i n the results section. MAGNESIUM LEVEL Routine 05/13/2019 4:00 Results for this AM FLYER REPAIRER procedure are i n the results section. BASIC METABOLIC PANEL Routine 05/13/2019 4:00 Re sults for this AM FLYER REPAIRER procedure are i n the results section. HC COMPLETE BLD COUNT Routine 05/12/2019 5:25 Re sults for this W/AUTO DIFF AM FLYER REPAIRER procedure are i n the results section. ESTIMATED GFR Routine 05/12/2019 12:00 Results fo r this AM FLYER REPAIRER procedure are i n the results section. BASIC METABOLIC PANEL Routine 05/12/2019 12:00 Re sults for this AM FLYER REPAIRER procedure are i n the results section. PHOSPHORUS LEVEL Routine 05/12/2019 12:00 Results for this AM FLYER REPAIRER procedure are i n the results section. MAGNESIUM LEVEL Routine 05/12/2019 12:00 Results for this AM FLYER REPAIRER procedure are i n the results section. HC COMPLETE BLD COUNT Routine 05/11/2019 4:00 Re sults for this W/AUTO DIFF PM FLYER REPAIRER procedure are i n the results section. SURGICAL PATHOLOGY Routine 05/11/2019 3:22 Resul ts for this REQUEST PM FLYER REPAIRER procedure are i n the results section. ESTIMATED GFR Routine 05/11/2019 3:17 Results fo r this PM [employer]YER REPAIRER procedure are i n the results section. PHOSPHORUS LEVEL Routine 05/11/2019 3:17 Results for this PM FLYER REPAIRER procedure are i n the results section. MAGNESIUM LEVEL Routine 05/11/2019 3:17 Results for this PM FLYER REPAIRER procedure are i n the results section. BASIC METABOLIC PANEL Routine 05/11/2019 3:17 Re sults for this PM FLYER REPAIRER procedure are i n the results section. CA AN ELECTIVE Routine 05/11/2019 1:22 Results f or this ENDOTRACHEAL AIRWAY PM FLYER REPAIRER procedur e are in the results section. REPAIR, HIATAL 05/11/2019 12:49 Diaphragmatic hernia HERNIA, LAPAROSCOPIC PM FLYER REPAIRER without obstruction or gangrene Case Notes POSSIBLE EXTENDED RECOVERY N EEDED Special Needs POSSIBLE EXTENDED RECOVERY N EEDED TYPE AND SCREEN STAT 05/11/2019 11:45 AM Resul ts for this [employer]YER REPAIRER procedure are i n the results section. XR CHEST 2 VW Routine 05/06/2019 11:12 AM Preop examination Re sults for this FLYER REPAIRER procedure are i n the results section. ECG PRE/POST OP Routine 05/06/2019 10:33 AM Preop examination Results for this [employer]ER REPAIRER procedure are i n the results section. ESTIMATED GFR Routine 05/06/2019 10:23 AM Results for this [employer]YER REPAIRER procedure are i n the results section. HC COMPLETE BLD COUNT Routine 05/06/2019 10:23 AM Preop examin ation Results for this W/AUTO DIFF FLYER REPAIRER procedure are i n the results section. BASIC METABOLIC PANEL Routine 05/06/2019 10:23 AM Preop examin ation Results for this FLYER REPAIRER procedure are i n the results section. PROTHROMBIN TIME WITH Routine 05/06/2019 10:23 AM Preop examin ation Results for this INR [facility]YER REPAIRER procedure are i n the results section. PARTIAL THROMBOPLASTIN Routine 05/06/2019 10:23 AM Preop exami nation Results for this TIME (PTT) FLYER REPAIRER procedure are i n the results section. SURGICAL PATHOLOGY Routine 05/04/2019 5:13 PM Re sults for this REQUEST FLYER REPAIRER procedure are i n the results section. after 08/25/2018 Results CBC with platelet and differential (05/13/2019 6:00 AM FLYER REPAIRER)Only the most recent of4 resultswithin the time period is included. WBC 9.52 4.50 - 11.00 [facility] k/uL HOSPITAL RBC 3.53 (L) 4.20 - 5.50 [facility] m/uL HOSPITAL HGB 9.4 (L) 12.0 - 16.0 [facility] g/dL [facility] HCT 30.5 (L) 37.0 - 47.0 % [facility] MCV 86.4 82.0 - 100.0 [facility] MCH 26.6 (L) 27.0 - 34.0 pg [facility] MCHC 30.8 (L) 31.0 - 37.0 [facility] g/dL [facility] RDW - SD 47.2 37.0 - 55.0 fL [facility] MPV 9.5 8.8 - 13.2 fL [facility] Platelet count 294 150 - 400 k/uL [facility] Nucleated RBC 0.00 /100 WBC [facility] Neutrophils 75.9 (H) 39.0 - 69.0 % [facility] Lymphocytes 10.4 (L) 25.0 - 45.0 % [facility] Monocytes 11.1 (H) 0.0 - 10.0 % [facility] Eosinophils 1.6 0.0 - 5.0 % [facility] Basophils 0.7 0.0 - 1.0 % [facility] Immature granulocytes 0.3Comment: 0.0 - 1.0 % [facility] "Immature [facility] granulocytes" (promyelocytes , myelocytes, metamyelocytes ) Specimen Blood Performing Organization Address City/State/Zipcode Phone Number [facility] DEPARTMENT OF PATHOLOGY AND [address], [place] [address] GEN[facility] [address]INE [address] [address] Estimated GFR (05/13/2019 4:00 AM FLYER REPAIRER)Only the most recent of4 resultswithin the time period is included. Estimated GFR 59 (A) mL/min/1.73 [facility] Comment: m2 HOSPITAL Catergory Units Interpretation G1 >=90 Normal or high G2 60-89 Mildly decreased G3a 45-59 Mildly to moderately decreas ed G3b 30-44 Moderately to severely decre ased G4 15-29 Severely decreased G5 <15 Kidney failure The eGFR was calculated using the Chronic Kidney Disea se Epidemiology Collaboration (CKD-EPI) equation. Interpretation is based on recommendations of the National Kidney Foundation-Kidney Disease Outcomes Avelino lity Initiative (NKF-KDOQI) published in 2014. Specimen Plasma specimen Performing Organization Address City/[facility] Phone Number [facility] DEPARTMENT OF PATHOLOGY AND [address] [place] [address] [phone] [address] Phosphorus level (05/13/2019 4:00 AM FLYER REPAIRER)Only the most recent of3 resultswithin the time period is included. Pathologist Sig nature Phosphorus 1.9 (L) 2.4 - 4.5 mg/dL [facility] L Specimen Plasma specimen Performing Organization Address [facility] Phone Number [facility] DEPARTMENT OF PATHOLOGY AND [address] [place] [address] [phone] [address] Magnesium level (05/13/2019 4:00 AM FLYER REPAIRER)Only the most recent of3 resultswithin the time period is included. Pathologist Sig nature Magnesium 2.0 1.6 - 2.4 mg/dL [facility] L Specimen Plasma specimen Performing Organization Address [facility] Phone Number [facility] DEPARTMENT OF PATHOLOGY AND [address] [place] [address] [phone] [address] Basic metabolic panel (05/13/2019 4:00 AM FLYER REPAIRER)Only the most recent of4 results within the time period is included. Pathologist Sig nature Sodium 141 135 - 148 mEq/L [facility] Potassium 3.9 3.5 - 5.0 mEq/L [facility] Chloride 105 98 - 112 mEq/L [facility] CO2 24 24 - 31 mEq/L [facility] Anion gap 12@ANIO 7 - 15 mEq/L [facility] BUN 8 8 - 23 mg/dL [facility] Creatinine 0.92 (H) 0.50 - 0.90 mg/dL [facility] Glucose 115 (H) 65 - 99 mg/dL [facility] Calcium 8.7 (L) 8.8 - 10.2 mg/dL [facility] Specimen Plasma specimen Performing Organization Address City/[facility] Phone Number [facility] DEPARTMENT OF PATHOLOGY AND [address] [place] [phone] [facility] [address] [place] [address] Surgical pathology request (05/11/2019 3:22 PM FLYER REPAIRER)Only the most recent of2 resultswithin the time period is included. [facility] DEPARTMENT OF PATHOLOGY AND GENOMIC MEDICINE Surgical pathology See link below [facility] DEPARTMENT OF report for PDF Lab PATHOLOGY AND Report GENOMIC MEDICINE Result status This is Final [facility] DEPARTMENT OF Report for PATHOLOGY AND [id number] GENOMIC MEDICINE Specimen Performing Organization Address City/[facility] Phone Number [facility] DEPARTMENT OF PATHOLOGY AND [address] [place] [phone] GENOMIC MEDICINE Airway (05/11/2019 1:22 PM FLYER REPAIRER) Narrative Performed At Scott Marquis II, MD 05/11/19 1:23 PM Airway Date/Time: 05/11/2019 12:57 PM Performed by: Scott Marquis II, MD Authorized by: Scott Marquis II, M D Location: OR Urgency: Elective Difficult Airway: No Performed by: anesthesiologist Preoxygenated with 100% O2: Yes C-spine Precautions Maintained Throughou t: Yes Mask Ventilation: Easy mask Final Airway Type: Endotracheal airway Final Endotracheal Airway: ETT Cuffed: Yes Technique Used: Direct laryngoscopy Devices/Methods Used in Placement: Int ubating stylet Insertion Site: Oral Blade Type: Ayala Laryngoscope Blade/Videolaryngoscope Leighton de Size: 2 ETT Size (mm): 7.0 Cuff at minimum occlusion pressure: Yes Measured from: Lips ETT to Lips (cm): 21 Placement Verified by: CO2 detection, di rect visualization and equal breath sounds Laryngoscopic view: Grade IIa - partia l view of glottis Number of Attempts at Approach: 1 Atraumatic. Dentition unchanged Type and screen (05/11/2019 11:45 AM FLYER REPAIRER) Pathologist Sig nature ABO grouping O [facility] Rh type NEG [facility] Antibody screen (gel) NEG [facility] Specimen Blood Performing Organization Address City/[facility] Phone Number [facility] DEPARTMENT OF PATHOLOGY AND [address], [place] [phone] [facility] [address] [place] [address] XR Chest 2 Vw (05/06/2019 11:12 AM FLYER REPAIRER) Specimen Narrative Performed At EXAMINATION: XR CHEST 2 VW [facility] CLINICAL HISTORY: Z01.818 Encounter for other prepro cedural examination, Routine CXR pre-op > 70 y rs COMPARISON: No prior IMPRESSION: The heart is normal in size. The pulmonary vasculature is normal. There are no acute infiltrates or effusions. Mild interstiti al scarring is noted. Degenerative changes of the osseous structures. Large retrocardiac hiatal hernia. Significant wedging of lower thoracic spine vertebral body. [id number] Procedure Note Interface, Radiology Results Incoming - 05/06/2019 11:19 AM FLYER REPAIRER EXAMINATION: XR CHEST 2 VW CLINICAL HISTORY: Z01.818 Encounter for other preprocedural examination, Routine CXR pre-op > 70 yrs COMPARISON: No prior IMPRESSION: The heart is normal in size. The pulmona ry vasculature is normal. There are no acute infiltrates or effusions. Mild interstitial scarring is noted. Degenerative changes of the osseous structures. Large retrocardiac hiatal hernia. Significant wedging of lower thoracic spine vertebral body. [id number] Performing Organization Address [facility]/Zipcode Phone Number [facility] [address] [place] [address] ECG Pre/Post Op (05/06/2019 10:33 AM FLYER REPAIRER) Pathologist Sig nature Ventricular rate 60 [facility] Atrial rate 60 [facility] CA interval 164 [facility] QRSD interval 100 [facility] QT interval 418 [facility] QTC interval 418 [facility] P axis 1 57 [facility] QRS axis 1 -38 [facility] T wave axis 58 [facility] EKG impression Normal sinus [facility] rhythm-Left axis deviation-Possible Anterior infarct , age undetermined-Abnormal ECG-No previous ECGs available-Electronicall y Signed By Jules GREEN, Armando Reynoso ([id number]) on 05/06/2019 6:51:15 PM Specimen Narrative Performed At This result has an attachment that is no t available. Performing Organization Address [facility] Phone Number [facility] MUSE [address] [place] [address] Partial thromboplastin time, activated (05/06/2019 10:23 AM FLYER REPAIRER) PTT 29.2 23.0 - 36.0 [facility]IC[facility] Comment: sec HOSPITAL PTT therapeutic range for unfractionated heparin is 61.0-112.0 seconds which corresponds to Anti-Xa 0.3-0.7 U/ml. Specimen Blood Performing Organization Address City/State/Zipcode Phone Number [facility] DEPARTMENT OF PATHOLOGY AND [address], [place] [address] [place] [id number] [place] [address] Prothrombin time with INR (05/06/2019 10:23 AM FLYER REPAIRER) Prothrombin time 12.8 11.5 - 14.5 [facility] INR 1.0 NOVI Comment: [facility] International Normalized Ratio (INR) is a [facility] HOSPITAL monitoring tool for patients who are stable on oral anticoagulant therapy. An INR of 2.0-3.0 is suggested for deep vein thrombosis/pulmonary embolism. Specimen Blood Performing Organization Address City/[facility]/Zipcode Phone Number [facility] DEPARTMENT OF PATHOLOGY AND [address] [place] [address] [phone] [address] after 08/25/2018 Advance Directives For more information, please contact: [phone] Type Date Recorded Patient Event Crew Technician Explanati on Advance Directives, Living Will and Medical Power of Loft Patternmaker
--- OUTSIDE RECORDS SUMMARY | 2019-08-26 10:41 | XMS REPORT | Continuity of Care Document ---
:1940 Author Organization [facility] t Address [address] [place] [address] Care Team Providers Name Role Phone Bridger Gross MD Primary Care Physician Anders Keita MD Attending Clinician Ha Marquis MD Attending Clinician Cindy Eubanks APRN Attending Clinician Darek Watts MD Attending Clinician Kyree Sutherland MD Attending Clinician IAN Admitting Clinician Unavailable Payers Payer Name Policy Type Policy Number Effective Date Expiration Date S w[place] AETNA xxxxxxxx 2013 [place] MEDICAREAETNA 00:00:00 [facility] MEDICARE HMO/PPO [id number] 4-PresentHMO Problems Condition Condition Condition Status Onset Resolution Last Treating Co mments Source Name Details Category Date Date Treatment Clinician Date 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 tic hernia 2-19 Me thodi without without 00:00: st obstructio obstructio 00 n or n or gangrene gangrene Allergies, Adverse Reactions, Alerts Allergy Allergy Status Severity Reaction(s) Onset Inactive Treating Comm ents Source Name Type Date Date Clinician Sulfa Propensi Active [place] (Sulfona ty to 2-14 Method[facility] mide adverse 00:00: st Antibiot reaction 00 ics) s to drug Social History Social Habit Start Date Stop Date Quantity Comments Source Sex Assigned [place] [facility] Alcohol intake 2019-05-12 2019-05-12 Current drinker [place] [facility] 00:00:00 00:00:00 of alcohol (finding) Alcohol Comment 2019-05-11 2019-05-11 Once a year - Matias henao [facility] 00:00:00 00:00:00 wine Smoking Status Start Date Stop Date Source Never smoker Quinn Alvarezis t Medications Ordered Filled Start Stop Current Ordering Indication Dosage Frequency Signature Comments Components Source Medication Medication Date Date Medication? Clinician (SIG) Name Name amLODIPine 2020-0 Yes 5mg QD Take 5 mg Ho alexis (NORVASC) 5 2-21 by mouth Meth katherin mg tablet 19:38: daily. st 21 buPROPion 2020-0 Yes 300mg QD Take 300 Amol ston XL 2-21 mg by [facility] (WELLBUTRIN 19:38: mouth st XL) 300 MG 21 daily. 24 hr tablet propranolol 2020-0 Yes 10mg [id number] Take 10 mg Ball (INDERAL) 2-21 [id number] by mouth 3 [facility] 10 MG 19:38: 3D (three) st tablet 21 times a day. cholecalcif 2020-0 Yes Take by Amol elizondo rajesh, 2-21 mouth. [facility] vitamin D3, 19:38: st (VITAMIN D3 21 ORAL) cyanocobala 2020-[address] [place] elizondo min/cobamam 2-21 7,500 mcg Met hodi jarrod (B12 19:38: under the st SL) 21 tongue. vit C/vit E 2020-0 Yes Take by Amol elizondo ac/lut/mariusz 2-21 mouth. Method i er/zinc 19:38: st (PRESERVISI 21 ON LUTEIN ORAL) vitamin E 2020-0 Yes 400U QD Take 400 [place] 400 UNIT 2-21 Units by [facility] capsule 19:38: mouth st 21 daily. vitamin B 2020-0 Yes Take by Sudha on complex (B 2-21 mouth. [facility] COMPLEX 1 19:38: st ORAL) 21 TURMERIC 2020-0 Yes Take by [place] ORAL 2-21 mouth. Methodi 19:38: st 21 Lactobacill 2020-0 Yes Take by Amol elizondo us 2-21 mouth. [facility] acidophilus 19:38: st (PROBIOTIC 21 ORAL) multivitami 2020-0 Yes Take by Amol elizondo n with 2-21 mouth. [facility] minerals 19:38: st (HAIR,SKIN 21 AND NAILS ORAL) levothyroxi 2020-0 Yes 75ug QD Take 75 Amol ston ne 2-21 mcg by [facility] (SYNTHROID) 19:38: mouth st 75 mcg 21 nightly. tablet pramipexole 2020-0 Yes .25mg QD Take 0.25 Ball (MIRAPEX) 2-21 mg by [facility] 0.25 MG 19:38: mouth st tablet 21 nightly. trazodone 2020-0 Yes 250mg QD Take 250 Amol ston HCl 2-21 mg by [facility] (TRAZODONE 19:38: mouth st ORAL) 21 nightly. risperiDONE 2020-0 Yes 1mg QD Take 1 mg [place] (RisperDAL) 2-21 by mouth Meth katherin 1 MG tablet 19:38: nightly. st 21 pseudoepHED 2020-0 Yes 60mg Q4H Take 60 mg Ball rine 2-21 by mouth Methodi (SUDAFED) 19:38: every 4 st 60 MG 21 (four) tablet hours as needed for congestion . denosumab 2020-0 Yes Inject Matias n (PROLIA 2-21 under the [facility] SUBQ) 19:38: skin. st 21 pantoprazol 2020-0 Yes 40mg QD Take 40 mg Ball e 2-21 by mouth Methodi (PROTONIX) 19:38: daily. st 40 MG EC 21 tablet sennosides- 2020- No 1{tbl} QD Take 1 [place] docusate 2-21 02-20 tablet by Metho di sodium 00:00: 23:[address] (SENOKOT-S) 00 :00 nightly as 8.6-50 mg needed for per tablet constipati on. acetaminoph 2019-2019- No 650mg Q6H Take 2 [place] en 2-21 02-26 tablets [facility] (TYLENOL) 00:00: 23:59 ([address] 325 MG 00 :00 total) by tablet mouth every 6 (six) hours as needed for mild pain or moderate pain for up to 5 days. Vital Signs Vital Name Observation Time Observation Value Comments Source Systolic blood 2019-05-13 12:47:19 160 mm[Hg] Matias n [facility] pressure Diastolic blood 2019-05-13 12:47:19 77 mm[Hg] [place] [facility] pressure Heart rate 2019-05-13 12:47:19 69 /min [facility] Body temperature 2019-05-13 12:47:19 36.22 Elvia [place] [facility] Respiratory rate 2019-05-13 12:47:19 18 /min [place] [facility] Oxygen saturation in 2019-05-13 12:47:19 95 /min [facility] Arterial blood by Pulse oximetry Body height 2019-05-11 12:00:00 162.6 cm [facility] Body weight 2019-05-11 12:00:00 65.273 kg [facility] BMI 2019-05-11 12:00:00 24.70 kg/m2 [facility] Procedures Procedure Date / Time Performing Clinician Source Performed HC COMPLETE BLD COUNT 2019-05-13 06:00:00 [place] Edge [facility] W/AUTO DIFF BASIC METABOLIC PANEL 2019-05-13 04:00:00 [place] [facility] MAGNESIUM LEVEL 2019-05-13 04:00:00 [place] Edge Mn thodist PHOSPHORUS LEVEL 2019-05-13 04:00:00 [place] ethodist ESTIMATED GFR 2019-05-13 04:00:00 Dhaval Keita ethodist HC COMPLETE BLD COUNT 2019-05-12 05:25:00 Reji Blank n [facility] W/AUTO DIFF MAGNESIUM LEVEL 2019-05-12 00:00:00 Reji Blank Meth odist PHOSPHORUS LEVEL 2019-05-12 00:00:00 Reji Blank BASIC METABOLIC PANEL 2019-05-12 00:00:00 Reji Blank n [facility] ESTIMATED GFR 2019-05-12 00:00:00 Dhaval Keita ethodist HC COMPLETE BLD COUNT 2019-05-11 16:00:00 Reji Blank n [facility] W/AUTO DIFF SURGICAL PATHOLOGY REQUEST 2019-05-11 15:22:00 Dhaval Keita BASIC METABOLIC PANEL 2019-05-11 15:17:00 Reji Blank n [facility] MAGNESIUM LEVEL 2019-05-11 15:17:00 Reji Blank Meth odist PHOSPHORUS LEVEL 2019-05-11 15:17:00 Reji Blank Met hodist ESTIMATED GFR 2019-05-11 15:17:00 Dhaval Keitast ID AN ELECTIVE 2019-05-11 13:22:31 Scott Marquis ENDOTRACHEAL AIRWAY REPAIR, HIATAL HERNIA, 2019-05-11 12:49:00 Dhaval Keita LAPAROSCOPIC TYPE AND SCREEN 2019-05-11 11:45:00 Dhaval Keita XR CHEST 2 VW 2019-05-06 11:12:44 Dora Eubanks ECG PRE/POST OP 2019-05-06 10:33:05 Dora Eubanks PARTIAL THROMBOPLASTIN 2019-05-06 10:23:00 Dora Eubanks TIME (PTT) PROTHROMBIN TIME WITH INR 2019-05-06 10:23:00 Dora Eubanks BASIC METABOLIC PANEL 2019-05-06 10:23:00 Dora Eubanks HC COMPLETE BLD COUNT 2019-05-06 10:23:00 Dora Eubanks W/AUTO DIFF ESTIMATED GFR 2019-05-06 10:23:00 Dora Eubanks SURGICAL PATHOLOGY REQUEST 2019-05-04 17:13:00 Jayden Sutherland Plan of Care Planned Activity Planned Date Details Comments Source Future Scheduled 2019-10-22 INFLUENZA VACCINE Hellento juliano Kwon Test 00:00:00 [code = INFLUENZA VACCINE] Future Scheduled 2005 65+ PNEUMOCOCCAL Quinn Kwon Test 00:00:00 VACCINE (1 of 2 - PCV13) [code = 65+ PNEUMOCOCCAL VACCINE (1 of 2 - PCV13)] Future Scheduled 1990 SHINGLES VACCINES (#1) H clem Kwon Test 00:00:00 [code = SHINGLES VACCINES (#1)] Encounters Start End Encounter Admission Attending Care Care Encounter Source Date/Time Date/Time Type Type Clinicians Facility Department ID 2019-05-24 2019-05-24 Outpatient IAN [facility] [id number] [place] 00:00:00 00:00:[address] [address] 2019-05-11 2019-05-13 Inpatient IAN, [facility] [id number] [place] 00:00:00 00:00:00 DHAVAL [address] 2019-05-06 2019-05-06 Outpatient TORY, [facility] [id number] [place] 00:00:00 00:00:00 ALFRED Cartwright [facility] Results Test Description Test Time Test Comments Results Result Comments Source Surgical pathology request 2019-05-13 15:39:50 Test Item Value Reference Range Interpretation Comme nts Case number (test code = [id number]) [id number] Surgical pathology report (test code = See link below for PDF Lab R eport 4616) Result status (test code = 5800829) This is Final Report for [id number] 1689-4 [place] [facility] [id number] 07:20:22 Test Item Value Reference Range Interpretation Comments Sodium (test code = 2951-2) 141 135- 148 mEq/L Potassium (test code = 2823-3) 3.9 3.5- 5.0 mEq/L Chloride (test code = 2075-0) 105 98- 112 mEq/L CO2 (test code = 8-9) 24 24- 31 mEq/L Anion gap (test code = 04089-2) 12@ANIO 7- 15 mEq/L BUN (test code = 3094-0) 8 mg/dL 8-23 Creatinine (test code = 2160-0) 0.92 mg/dL 0.5-0.9 H Glucose (test code = 2345-7) 115 mg/dL 65-99 H Calcium (test code = 92082-4) 8.7 mg/dL 8.8-10.2 L Lab Interpretation (test code = Abnormal 20874-0) [place] [facility] [id number] 07:20:22 Test Item Value Reference Range Interpretation Comments Magnesium (test code = 46955-4) 2.0 mg/dL 1.6-2.4 [place] MethodistPhosphorus [id number] 07:20:22 Test Item Value Reference Range Interpretation Comments Phosphorus (test code = 2777-1) 1.9 mg/dL 2.4-4.5 L Lab Interpretation (test code = Abnormal 41177-8) Quinn MethodistEstimated [id number] 07:20:22 Test Item Value Reference Range Interpretation Comments Estimated GFR (test 59 mL/min/1.73 m2 Pearl redmond Units code = 5488) InterpretationG 1 >=90 Enma l or highG2 60-89 Mildly decrease dG3a 45-59 Mil dly to moderately decr gtyuhJ5b 30-44 Moderately to s everely decreasedG4 15-29 Severe ly decreasedG5 <15 Kidney bao lureThe eGFR was calcul ated using the [facility] Kidney Disease Epidemiology Collaboration ( CKD-EPI) equation. Interpretation is based on recommendati ons of the National dney [facility]-Kidn ey Disease Outcome s Quality Initiat komal (NKF-KDOQI) pub lished in 2013. Lab Interpretation Abnormal (test code = 07189-1) Quinn MethodistCBC with platelet and [id number] 07:02:05 Test Item Value Reference Range Interpretation Comments WBC (test code = 64945-2) 9.52 4.50- 11.00 k/uL RBC (test code = 09663-3) 3.53 m/uL 4.2-5.5 L HGB (test code = 718-7) 9.4 g/dL 12-16 L HCT (test code = 4544-3) 30.5 % 37-47 L MCV (test code = 787-2) 86.4 fL 82-100 MCH (test code = 785-6) 26.6 pg 27-34 L MCHC (test code = 786-4) 30.8 g/dL 31-37 L RDW - SD (test code = 47.2 fL 37-55 65324-9) MPV (test code = 19657-7) 9.5 fL 8.8-13.2 Platelet count (test code 294 150- 400 k/uL = 10110-1) Nucleated RBC (test code 0.00 /100 WBC = 58320-8) Neutrophils (test code = 75.9 % 39-69 H 93921-3) Lymphocytes (test code = 10.4 % 25-45 L 27681-8) Monocytes (test code = 11.1 % 0-10 H 07832-8) Eosinophils (test code = 1.6 % 0-5 54647-2) Basophils (test code = 0.7 % 0-1 54172-8) Immature granulocytes 0.3 % 0-1 "Immat ure (test code = 83994-4) granul ocytes" (promyelocytes, myelocytes, metamyelocytes) Lab Interpretation (test Abnormal code = 36667-1) Ball MethodistType and [id number] 13:30:00 Test Item Value Reference Range Interpretation Comments ABO grouping (test code = 883-9) O Rh type (test code = 42062-7) NEG Antibody screen (gel) (test code = NEG 890-4) Ball [id number] 13:22:31Scott Marquis II, MD 05/11/2019 1:23 PMAirwayDate/Time: 05/11/2019 12:57 PMPerformed by: Scott Marquis II, MDAuthorized by: Scott Marquis II, MD Location: ORUrgency: ElectiveDifficult Airway: No Performed by: anesthesiologistPreoxygenated with 100% O2: Yes C-spine Precautions Maintained Throughout: Yes Mask Ventilation: Easy maskFinal Airway Type: Endotracheal airwayFinal Endotracheal Airway: ETTCuffed: Yes Technique Used: Direct laryngoscopyDevices/Methods Used inPlacement: Intubating styletInsertion Site: OralBlade Type: MillerLaryngoscope Blade/Videolaryngoscope Blade Size: 2ETT Size (mm): 7.0Cuff at minimum occlusion pressure: Yes Measured from: LipsETT to Lips (cm): 21Placement Verified by: CO2 detection, direct visualization and equal breath sounds Laryngoscopic view: Grade IIa - partial view of glottisNumber of Attempts at Approach: 1 Atraumatic. Dentition unchangedHouston MethodistECG Pre/Post [id number] 18:51:18 Test Item Value Reference Range Interpretation Comments Ventricular rate (test 60 code = 253) Atrial rate (test code = 60 255) ID interval (test code = 164 266) QRSD interval (test code 100 = 260) QT interval (test code = 418 264) QTC interval (test code 418 = 265) P axis 1 (test code = 57 267) QRS axis 1 (test code = -38 268) T wave axis (test code = 58 270) EKG impression (test Normal sinus code = 273) rhythm-Left axis deviation-Possible Anterior infarct , age undetermined-Abnormal ECG-No previous ECGs available-Electronica lly Signed By Armando Vicente MD ([id number]) on 05/06/2019 6:51:15 PM Quinn KwonPartial thromboplastin time, [id number] 11:26:30 Test Item Value Reference Range Interpretation Comments PTT (test code = 29.2 23.0- 36.0 [place] [address]-8) unfractionated heparin is61.0-112.0 se conds which corresponds to Anti-Xa0.3-0.7 U/ml. Quinn KwonProthrombin time with [id number] 11:26:20 Test Item Value Reference Range Interpretation Comments Prothrombin time (test 12.8 11.5- 14.5 sec code = 5902-2) INR (test code = 1.0 The Interna tional 53260-2) Normalized Rati o (INR) is a therapeutic m onitoring tool for patien ts who are stable on oral anticoagulant t herapy. An INR of 2.0-3.0 is suggested for d eep vein thrombosis/pulm onary embolism. Quinn KwonXR Chest 2 [id number] 11:16:14Hm Interface, Radiology Results Incoming - 05/06/2019 11:19 AM CSTEXAMINATION: XR CHEST 2 VWCLINICAL HISTORY: Z01.818 Encounter for other preprocedural examination, Routine CXR pre-op > 70 yrsCOMPARISON: No priorIMPRESSION:The heart is normal in size. The pulmonary vasculature is normal. There are no acute infiltrates or effusions. Mild interstitial scarring is noted. Degenerative changes of the osseous structures. Large retrocardiac hiatal hernia. Significant wedging of lower thoracic spine v ertebral body. [id number] Methodist
[2019-08-26] MEDS ORDERED: NA CHLORIDE 0.9% 500 ML ONE (10:58)
[2019-08-26 11:09] LABS: Absolute Lymphocytes (CBC) 1.1 K/uL (0.7-4.9); Hematocrit 38.9 % (36.0-45.0); Lymphocytes % 16.6 % (15.3-44.8); MPV 7.2 fL (7.6-11.3); RBC Red Blood Cell Count 4.83 M/uL (3.86-4.86)
[2019-08-26 11:10] LABS: Protime INR 0.96
--- NOTE | 2019-08-26 11:20 | RAD REPORT ---
EXAM DESCRIPTION: CT - Head Brain Wo Cont - 08/26/2019 11:14 am CLINICAL HISTORY: dizziness, headache Headache, drowsiness COMPARISON: No comparisons TECHNIQUE: All CT scans are performed using dose optimization technique as appropriate and may inclu de automated exposure control or mA/KV adjustment according to patient size. FINDINGS: No intracranial hemorrhage, hydrocephalus or extra-axial fluid collection.Mild generalized brain atrophy is present with mild periventricular and deep white matter chronic microvascular ische phill changes.No areas of brain edema or evidence of midline shift. Mild mucus is seen in the left sphenoid sinus and several ethmoid air cells. The paranasal sinuses an d mastoids are otherwise clear. The calvarium is intact. IMPRESSION: No acute intracranial abnormality.
[2019-08-26 11:25] LABS: ALT/SGPT 16 U/L (12-78); AST/SGOT 18 U/L (15-37); Albumin 3.4 g/dL (3.4-5.0); Alkaline Phosphatase 81 U/L (45-117); BUN Blood Urea Nitrogen 18 mg/dL (7-18); Bicarbonate 26 mmol/L (21-32); Bilirubin Direct 0.1 mg/dL (0-0.2); Bilirubin Total 0.5 mg/dL (0.2-1.0); Glucose Level 101 mg/dL (74-106); Magnesium 2.2 mg/dL (1.8-2.4); NT PRO-BNP 142 pg/mL (<450); Protein, Total 7.4 g/dL (6.4-8.2); Sodium Level 140 mmol/L (136-145); Troponin (Emerg Dept Use Only) < 0.02 ng/mL (0.0-0.045)
--- NOTE | 2019-08-26 11:33 | RAD REPORT ---
EXAM DESCRIPTION: RAD - Chest Single View - 08/26/2019 11:24 am CLINICAL HISTORY: weakness Chest pain. COMPARISON: Chest Pa And Lat (2 Views) dated 04/14/2019; Chest Single View dated 09/10/2018; Chest Sin gle View dated 06/10/2016; CHEST SINGLE VIEW dated 02/18/2014 FINDINGS: Portable technique limits examination quality. Mild linear subsegmental atelectasis is suspect in the left lung base. The lungs are otherwise clear. The heart is mildly prominent. A hiatal hernia is suspected.
--- NOTE | 2019-08-26 11:35 | RAD REPORT ---
EXAM DESCRIPTION: CT - Head angio - 08/26/2019 11:15 am CLINICAL HISTORY: DIZZY AND HEADACHES Headache, drowsiness COMPARISON: Head Brain Wo Cont dated 08/26/2019 TECHNIQUE: CT angiography of the head was performed with MIPs. All CT scans are performed using dose optimization technique as appropriate and may include automated exposure control or mA/KV adjustment according to patient size. FINDINGS: No evidence of aneurysm is detected. No flow-limiting stenosis or vascular malformation id entified. Antegrade flow is seen in the vertebral arteries. The vertebral arteries are codominant. The visualized dural venous sinuses are patent. IMPRESSION: No significant flow abnormality is detected.
--- NOTE | 2019-08-26 11:39 | RAD REPORT ---
EXAM DESCRIPTION: CT - Neck Angio - 08/26/2019 11:14 am CLINICAL HISTORY: dizziness COMPARISON: No comparisons TECHNIQUE: CT angiography of the neck vessels was performed with MIPs. All CT scans are performed using dose optimization technique as appropriate and may include automated exposure control or mA/KV adjustment according to patient size. FINDINGS: A left aortic arch is identified with normal three vessel configuration of the great vesse ls. No significant flow abnormality is seen of the common carotid bilaterally. No significant stenosis is identified involving the cervical segments of both internal carotid arteri es. Slight calcific plaque is seen right carotid bulb. Normal flow is seen within both vertebral arteries. IMPRESSION: No significant flow abnormality of the neck vessels is identified.
[2019-08-26 12:30] LABS: Urine Blood NEGATIVE (NEG); Urine Glucose NEGATIVE (NEG); Urine Protein NEGATIVE (NEG)
--- NOTE | 2019-08-26 13:05 | EDPHYS ---
Physician Documentation [facility] Name: Charline Leahy Age: 79 yrs Sex: Female : 1940 Arrival Date: 08/26/2019 Time: 10:33 Bed 2 Private MD: ED Physician Edmar Todd HPI: 08/25 10:48 This 79 yrs old Female presents to ER via EMS with complaints of Dizziness, rn Headache. 10:48 The patient presents with dizziness. Onset: The symptoms/episode began/occurred this rn morning. Modifying factors: The symptoms are alleviated by nothing, the symptoms are aggravated by standing up. Severity of symptoms: At their worst the symptoms were moderate in the emergency department the symptoms have improved. The patient has experienced similar episodes in the past. Reports woke up this morning dizzy, had trouble walking, fell back into chair, no syncope, no head injury. Reports left sided headache for 1 week. + similar episodes of dizziness in past, attributes them to medication side effects. + migraines in past, today was not "worst of her life". Feels better now. No focal weakness/numbness/vision or speech changes. . Historical: - Allergies: 10:43 Sulfa (Sulfonamide Antibiotics); iw - Home Meds: 10:43 Sudafed 30 mg Oral tab twice a day [Active]; amlodipine 5 mg tab 1 tab once daily iw [Active]; risperidone 1 mg oral tab 1 tab once daily [Active]; trazodone 150 mg Oral tab 1 tab 3 times per day [Active]; pramipexole 0.25 mg oral tab 1 tab nightly [Active]; Benicar 40 mg oral tab 1 tab once daily [Active]; bupropion HCl 150 mg Oral TbER 1 tab once daily [Active]; levothyroxine 75 mcg tab 1 tab once daily [Active]; - PMHx: 10:43 Bipolar disorder; Thyroid problem; Hypertension; iw - PSHx: 10:43 endoscope -stretching ring around esophagus; cataract - bilateral; Cholecystectomy; iw ovary removed; endometrosis surgery; colonscopy - "clear" 2009; hysterectomy - partial; - Immunization history:: Adult Immunizations not up to date. - Social history:: Smoking status: Patient denies any tobacco usage or history of. - Family history:: not pertinent. - Hospitalizations: : No recent hospitalization is reported. ROS: 10:48 Constitutional: Negative for fever, chills, and weight loss, Eyes: Negative for injury, rn pain, redness, and discharge, Neck: Negative for injury, pain, and swelling, Cardiovascular: Negative for chest pain, palpitations, and edema, Respiratory: Negative for shortness of breath, cough, wheezing, and pleuritic chest pain, Abdomen/GI: Negative for abdominal pain, nausea, vomiting, diarrhea, and constipation, MS/Extremity: Negative for injury and deformity, Skin: Negative for injury, rash, and discoloration, Neuro: Negative for numbness, tingling, and seizure. Exam: 10:48 Constitutional: This is a well developed, well nourished patient who is awake, alert, rn and in no acute distress. Sitting upright, smiling. Head/Face: Normocephalic, atraumatic. Eyes: Pupils equal round and reactive to light, + left lateral subconjunctival hemorrhage. Cardiovascular: Regular rate and rhythm. No pulse deficits. Respiratory: No increased work of breathing, no retractions or nasal flaring. Abdomen/GI: soft, non-tender Skin: Warm, dry MS/ Extremity: Pulses equal, no cyanosis. Neurovascular intact. Full, normal range of motion. Equal circumference. Neuro: Awake and alert, GCS 15, oriented to person, place, time, and situation. Cranial nerves II-XII grossly intact. Motor strength 5/5 in all extremities. Sensory grossly intact. Cerebellar exam normal. Vital Signs: 10:36 BP 179 / 86; Pulse 71; Resp 16; Temp 98.1; Pulse Ox 97% on R/A; Weight 65.77 kg; Height iw 5 ft. 4 in. (162.56 cm); Pain 4/10; 11:03 BP 168 / 89; Pulse 81; Resp 16; Pulse Ox 97% on R/A; iw 12:36 BP 181 / 71; Pulse 75; Resp 16; Pulse Ox 98% on R/A; iw 10:36 Body Mass Index 24.89 (65.77 kg, 162.56 cm) iw MDM: 10:39 Patient medically screened. rn 13:02 Differential diagnosis: hypovolemia, idiopathic dizziness, vertigo, HTN, vascular rn problem, CVA, dissection. Data reviewed: vital signs, nurses notes, lab test result(s), EKG, radiologic studies, CT scan, plain films, and as a result, I will discharge patient. Counseling: I had a detailed discussion with the patient and/or guardian regarding: the historical points, exam findings, and any diagnostic results supporting the discharge/admit diagnosis, lab results, radiology results, the need for outpatient follow up, to return to the emergency department if symptoms worsen or persist or if there are any questions or concerns that arise at home. Response to treatment: the patient's symptoms have markedly improved after treatment, and as a result, I will discharge patient. Special discussion: I discussed with the patient/guardian in detail that at this point there is no indication for admission to the hospital. It is understood, however, that if the symptoms persist or worsen the patient needs to return immediately for re-evaluation. Based on the history and exam findings, there is no indication for further emergent testing or inpatient evaluation. I discussed with the patient/guardian the need to see the primary care provider for further evaluation of the symptoms. ED course: SPoke with her physician, Dr. Gross, agrees ok to dc home, requests 5mg amlodipine PO right now, and will f/u with him for BP management. CT head/angio neg, results discussed and printed out for daughter. . 08/25 10:39 Order name: Basic Metabolic Panel; Complete Time: : [facility] 08/25 10:39 Order name: CBC with Diff; Complete Time: : [facility] 08/25 10:39 Order name: LFT's; Complete Time: 11:49 [facility] 08/25 10:39 Order name: Magnesium; Complete Time: 11: [facility] 08/25 10:39 Order name: NT PRO-BNP; Complete Time: 11: [facility] 08/25 10:39 Order name: PT-INR; Complete Time: 11:49 [facility] 08/25 10:39 Order name: Troponin (emerg Dept Use Only); Complete Time: :49 [facility] 08/25 10:39 Order name: XRAY Chest (1 view); Complete Time: 11:49 [facility] 08/25 10:39 Order name: CT Head Brain wo Cont; Complete Time: 11:49 [facility] 08/25 10:47 Order name: CT Neck Angio; Complete Time: 11:49 08/25 11:16 Order name: CREATININE WHOLE BLOOD; Complete Time: 11:49 EDMS 08/25 12:09 Order name: Urine Dipstick--Ancillary (enter results); Complete Time: 12:44 hb 08/25 10:39 Order name: EKG; Complete Time: 10:40 [facility] 08/25 10:39 Order name: Cardiac monitoring; Complete Time: 10:49 [facility] 08/25 10:39 Order name: EKG - Nurse/Tech; Complete Time: 12:04 [facility] 08/25 10:39 Order name: IV Saline Lock; Complete Time: 10:59 [facility] 08/25 10:39 Order name: Labs collected and sent; Complete Time: 10:59 [facility] 08/25 10:39 Order name: O2 Per Protocol; Complete Time: 10:49 [facility] 08/25 10:39 Order name: O2 Sat Monitoring; Complete Time: 10:49 [facility] 08/25 10:45 Order name: Urine Dipstick-Ancillary (obtain specimen); Complete Time: 12:03 rn 08/25 11:06 Order name: Head angio; Complete Time: 11:49 EDMS Administered Medications: 10:59 Drug: NS 0.9% 500 ml Route: IV; Rate: bolus; Site: left forearm; iw 11:30 Follow up: IV Status: Completed infusion iw 13:11 Not Given (Duplicate Order): amLODIPine 5 mg PO once iw 13:12 Drug: amLODIPine 10 mg Route: PO; iw 13:28 Follow up: Response: No adverse reaction iw Disposition: 08/26/19 13:04 Discharged to Home. Impression: Dizziness and giddiness, Headache, Hypertension. - Condition is Stable. - Discharge Instructions: Dizziness, General Headache Without Cause, Hypertension. - Medication Reconciliation Form, Thank You Letter, Antibiotic Education, Prescription Opioid Use form. - Follow up: Pearl Gross MD; When: 2 - 3 days; Reason: Recheck today's complaints, Re-evaluation by your physician. - Problem is new. - Symptoms have improved. Signatures: Dispatcher [employer] EDMS Salomón Benz PA PA jmm Williams, Irene, RN RN iw Edmar Todd MD MD angle furnaceman: (The following items were deleted from the chart) 11:06 10:48 Head Angio+CT.RAD.BRZ ordered. [facility] EDMO 13:27 13:04 08/26/2019 13:04 Discharged to Home. Impression: Dizziness and giddiness; iw Headache; Hypertension. Condition is Stable. Forms are Medication Reconciliation Form, Thank You Letter, Antibiotic Education, Prescription Opioid Use. Follow up: Pearl Gross; When: 2 - 3 days; Reason: Recheck today's complaints, Re-evaluation by your physician. Problem is new. Symptoms have improved. rn
--- NOTE | 2019-08-26 13:05 | ER ---
Nurse's Notes [facility] Name: Charline Leahy Age: 79 yrs Sex: Female : 1940 Arrival Date: 08/26/2019 Time: 10:33 Bed 2 Private MD: Diagnosis: Dizziness and giddiness;Headache;Hypertension Presentation: 08/25 10:36 Chief complaint: EMS states: pt has had dizziness when standing and left sided iw headache, p states she gets dizzy from her medication, today pt tried to stand up and she lurched forward and couldn't stand up, fell back into a chair, did not injure herself, also was feeling like her BP was high, EMS reports BP of 200/94, down to 179/86, pain 4/10 to left side of head, negative stroke scale. Coronavirus screen: Proceed with normal triage. Patient denies a cough. Patient denies shortness of breath or difficulty breathing. Patient denies measured and/or subjective temperature greater than 100.4F prior to today's visit. Patient denies travel on a cruise ship or to a country the [facility] currently lists as an affected area. Patient denies contact with known and/or suspected case of COVID-19. Ebola Screen: Patient negative for fever greater than or equal to 101.5 degrees Fahrenheit, and additional compatible Ebola Virus Disease symptoms Patient denies exposure to infectious person. Patient denies travel to an Ebola-affected area in the 21 days before illness onset. No symptoms or risks identified at this time. Initial Sepsis Screen: Does the patient meet any 2 criteria? No. Patient's initial sepsis screen is negative. Does the patient have a suspected source of infection? No. Patient's initial sepsis screen is negative. Risk Assessment: Do you want to hurt yourself or someone else? Patient reports no desire to harm self or others. Onset of symptoms was August 26, 2019. 10:36 Method Of Arrival: EMS: [facility] iw 10:36 Acuity: YANELY 3 iw Triage Assessment: 10:45 Pain: Also complains of no other associated symptoms. iw 10:45 Headache History: The patient has had previous headaches and this one is similar to iw previous episodes. 10:45 Pain: Pain currently is 4 out of 10 on a pain scale. iw 11:00 Pain: Pain began this morning. iw Historical: - Allergies: 10:43 Sulfa (Sulfonamide Antibiotics); iw - Home Meds: 10:43 Sudafed 30 mg Oral tab twice a day [Active]; amlodipine 5 mg tab 1 tab once daily iw [Active]; risperidone 1 mg oral tab 1 tab once daily [Active]; trazodone 150 mg Oral tab 1 tab 3 times per day [Active]; pramipexole 0.25 mg oral tab 1 tab nightly [Active]; Benicar 40 mg oral tab 1 tab once daily [Active]; bupropion HCl 150 mg Oral TbER 1 tab once daily [Active]; levothyroxine 75 mcg tab 1 tab once daily [Active]; - PMHx: 10:43 Bipolar disorder; Thyroid problem; Hypertension; iw - PSHx: 10:43 endoscope -stretching ring around esophagus; cataract - bilateral; Cholecystectomy; iw ovary removed; endometrosis surgery; colonscopy - "clear" 2009; hysterectomy - partial; - Immunization history:: Adult Immunizations not up to date. - Social history:: Smoking status: Patient denies any tobacco usage or history of. - Family history:: not pertinent. - Hospitalizations: : No recent hospitalization is reported. Screenin:03 Abuse screen: Denies threats or abuse. Denies injuries from another. Nutritional iw screening: No deficits noted. Tuberculosis screening: No symptoms or risk factors identified. Fall Risk Fall in past 12 months (25 points). IV access (20 points). Assessment: 10:45 General: Appears in no apparent distress. Behavior is calm, cooperative. Pain: iw Complains of pain in left episcopalian. Neuro: Level of Consciousness is awake, alert, obeys commands, Oriented to person, place, time, situation, Moves all extremities. Neuro: Speech is normal, Facial symmetry appears normal, Reports dizziness, headache. Cardiovascular: Patient's skin is warm and dry. Cardiovascular: Denies chest pain, shortness of breath. Respiratory: Airway is patent Respiratory effort is even, unlabored. GI: Abdomen is flat, non-distended. Derm: Skin is. Musculoskeletal: Range of motion: intact in all extremities. 12:36 Reassessment: Patient appears in no apparent distress at this time. Patient and/or iw family updated on plan of care and expected duration. Pain level reassessed. Patient is alert, oriented x 3, equal unlabored respirations, skin warm/dry/pink. Patient states feeling better. Patient states symptoms have improved. 13:02 Reassessment: Patient appears in no apparent distress at this time. Patient and/or iw family updated on plan of care and expected duration. Pain level reassessed. Patient is alert, oriented x 3, equal unlabored respirations, skin warm/dry/pink. Renato Ramírez at bedside to discuss POC, daughter at bedside. Vital Signs: 10:36 BP 179 / 86; Pulse 71; Resp 16; Temp 98.1; Pulse Ox 97% on R/A; Weight 65.77 kg; Height iw 5 ft. 4 in. (162.56 cm); Pain 4/10; 11:03 BP 168 / 89; Pulse 81; Resp 16; Pulse Ox 97% on R/A; iw 12:36 BP 181 / 71; Pulse 75; Resp 16; Pulse Ox 98% on R/A; iw 10:36 Body Mass Index 24.89 (65.77 kg, 162.56 cm) iw ED Course: 10:33 Patient arrived in ED. iw 10:39 Edmar Todd MD is Attending Physician. rn 10:39 Triage completed. iw 10:47 Sissy Colbert RN is Primary Nurse. iw 10:50 Initial lab(s) drawn, by me, sent to lab. Inserted saline lock: 20 gauge in left iw forearm, using aseptic technique. Blood collected. 11:00 Arm band placed on. iw 11:14 CT Head Brain wo Cont In Process Unspecified. EDMS 11:14 CT Neck Angio In Process Unspecified. EDMS 11:14 Head angio In Process Unspecified. EDMS 11:24 XRAY Chest (1 view) In Process Unspecified. EDMS 13:04 Pearl Gross MD is Referral Physician. rn 13:26 Patient has correct armband on for positive identification. iw 13:26 No provider procedures requiring assistance completed. IV discontinued, intact, iw bleeding controlled, No redness/swelling at site. Pressure dressing applied. Administered Medications: 10:59 Drug: NS 0.9% 500 ml Route: IV; Rate: bolus; Site: left forearm; iw 11:30 Follow up: IV Status: Completed infusion iw 13:11 Not Given (Duplicate Order): amLODIPine 5 mg PO once iw 13:12 Drug: amLODIPine 10 mg Route: PO; iw 13:28 Follow up: Response: No adverse reaction iw Outcome: 13:04 Discharge ordered by . rn 13:26 Discharged to home ambulatory, with family. iw 13:26 Condition: good 13:26 Discharge instructions given to patient, family, Instructed on discharge instructions, follow up and referral plans. Demonstrated understanding of instructions, follow-up care. 13:27 Patient left the ED. iw Signatures: Dispatcher [employer] Sissy Barnard RN RN iw Edmar Todd MD MD internship: (The following items were deleted from the chart) 11:06 10:57 In radiology for Head Angio+CT.RAD.[email or web address]. BRYANCA EDMS
[2019-08-26] MEDS ORDERED: AMLODIPINE 5 MG TAB ONE ×2 (13:14→13:17)
[2019-08-26 13:36] VITALS: TEMP 98.1
[2019-08-26 13:38] VITALS: BP 181/71; O2SAT 98
--- NOTE | 2019-08-27 07:53 | EKG ---
Test Date: 2019-08-26 Test Time: 11:29:27 [employer] General Manager: [place] MEASUREMENT RESULTS: Intervals: Rate: 63 IL: 158 QRSD: 94 QT: 442 QTc: 452 [place]: P: 20 IL: 158 QRS: -44 T: 80 INTERPRETIVE STATEMENTS: Normal sinus rhythm Left axis deviation Septal infarct, age undetermined Abnormal ECG Compared to ECG 04/15/2019 09:22:14 No significant changes Electronically Signed On 08-27-19 07:52:03 CDT by Roberth Atwood
== END 2019-08-26 13:27 | disposition home or self-care (01) ==
LOC: ER 10:27
DX: R51 Headache (principal); I10 Essential (primary) hypertension; E07.9 Disorder of thyroid, unspecified; F31.9 Bipolar disorder, unspecified; Z88.2 Allergy status to sulfonamides
CPT/HCPCS: 93005; 85025; 80048; 36415; 83735; 85610; 82565; 80076; 81003; 84484; 83880; 70450; 70496; 70498; 71045; 96360; 99284; Q9967; J7040

== ENCOUNTER 2019-12-26 06:40 | Emergency (ER) | payer OTHER ==
--- NOTE | 2019-12-26 08:38 | RAD REPORT ---
EXAM DESCRIPTION: RAD - Ankle Left 3 View - 12/26/2019 8:24 am CLINICAL HISTORY: PAIN COMPARISON: No comparisons FINDINGS: No fracture, dislocation or periosteal reaction. No joint effusion seen. No joint space na rrowing. No soft tissue abnormality. IMPRESSION: Negative left ankle for fracture or other acute finding.
--- NOTE | 2019-12-26 08:39 | RAD REPORT ---
EXAM DESCRIPTION: RAD - Shoulder Left 2 View - 12/26/2019 8:24 am CLINICAL HISTORY: PAIN, fall COMPARISON: Chest Single View dated 12/26/2019 TECHNIQUE: Internal and external rotation views of the left shoulder were obtained. FINDINGS: There is no fracture or dislocation. Mild degenerative changes are present at the AC joint . Width of the AC joint is within normal limits. Acromial humeral joint space is narrowed slightly. N o abnormal soft tissue calcifications. No acute or suspicious findings. IMPRESSION: Negative two-view left shoulder examination for acute findings.
--- NOTE | 2019-12-26 08:45 | RAD REPORT ---
EXAM DESCRIPTION: RAD - Chest Single View - 12/26/2019 8:24 am CLINICAL HISTORY: BLUNT CHEST TRAUMA, fall with chest pain COMPARISON: August 25 portable chest, CT chest April 15 TECHNIQUE: AP portable chest image was obtained 12/26/2019 8:24 am . FINDINGS: No pulmonary contusion or acute lung parenchymal process. Interstitial pattern matches com parison. Heart and vasculature are normal. No measurable pleural effusion and no pneumothorax. No acu te bone finding. Patient has mild degenerative change at its each AC joint. Prior CT chest showed a l arge hiatal hernia. That is not evident on this examination and may have been surgically corrected. N o acute aortic findings suspected. IMPRESSION: No acute cardiopulmonary process. No suspicious change from August 25 imaging.
--- NOTE | 2019-12-26 08:53 | ER ---
Nurse's Notes [facility] Name: Charline Leahy Age: 79 yrs Sex: Female : 1940 Arrival Date: 12/26/2019 Time: 06:41 Bed 5 Private MD: Pearl Gross C Diagnosis: Contusion of left shoulder;Contusion of left ankle Presentation: 12/25 06:55 Chief complaint: EMS states: patient fell around 2300H last night. mechanical fall rr5 complaining of left side pain. able to crawl to her couch. but now she is complaining of left arm and left leg pain. not on blood thinner denies LOC. 06:55 Coronavirus screen: Client denies travel out of the [place] in the last 14 days. At this rr5 time, the client does not indicate any symptoms associated with coronavirus-19. Ebola Screen: Patient negative for fever greater than or equal to 101.5 degrees Fahrenheit, and additional compatible Ebola Virus Disease symptoms Patient denies exposure to infectious person. Patient denies travel to an Ebola-affected area in the 21 days before illness onset. Initial Sepsis Screen: Does the patient meet any 2 criteria? No. Patient's initial sepsis screen is negative. Does the patient have a suspected source of infection? No. Patient's initial sepsis screen is negative. Risk Assessment: Do you want to hurt yourself or someone else? Patient reports no desire to harm self or others. Onset of symptoms was December 25, 2019 at 23:00. 06:55 Method Of Arrival: EMS: [facility] rr5 06:55 Acuity: YANELY 3 rr5 06:55 Care prior to arrival: None. Mechanism of Injury: Fall from standing position. Trauma rr5 event details: Injury occurred in the [facility], Injury occurred: at home. Injury occurred: December 25, 2019 Injury occurred at: 23:00. Triage Assessment: 06:55 General: Appears in no apparent distress. comfortable, Behavior is calm, cooperative, rr5 appropriate for age. Pain: Complains of pain in left arm and left leg Pain currently is 1 out of 10 on a pain scale. Quality of pain is described as aching, Pain began suddenly, Is intermittent. EENT: No signs and/or symptoms were reported regarding the EENT system. Neuro: Level of Consciousness is awake, alert, obeys commands, Oriented to person, place, time, situation. Cardiovascular: Capillary refill < 3 seconds Patient's skin is warm and dry. Respiratory: Airway is patent Respiratory effort is even, unlabored, Respiratory pattern is regular, symmetrical. GI: No signs and/or symptoms were reported involving the gastrointestinal system. : No signs and/or symptoms were reported regarding the genitourinary system. Derm: Skin is fragile, is thin, Skin temperature is warm. Musculoskeletal: Capillary refill < 3 seconds, Range of motion: limited in left shoulder and left ankle Reports pain in left arm and left leg. Trauma Activation: Alert Physician: ED Physician; Name: dr. todd; Notified At: 06:52; Arrived At: 07:00 Physician: General Surgeon; Name: ; Notified At: 06:52; Arrived At: Physician: Radiology; Name: marcello; Notified At: 06:52; Arrived At: 06:55 Physician: Respiratory; Name: ; Notified At: 06:52; Arrived At: Physician: Lab; Name: ; Notified At: 06:52; Arrived At: Historical: - Allergies: 06:50 Sulfa (Sulfonamide Antibiotics); lp1 - Home Meds: 06:50 amlodipine 5 mg tab 1 tab once daily [Active]; amlodipine besylate 5mg at morning lp1 [Active]; Benicar 40 mg Oral tab 1 tab once daily [Active]; bupropion HCl 100 mg Oral tab 1 tab 2 times per day [Active]; bupropion HCl 150 mg Oral TbER 1 tab once daily [Active]; levothyroxine 75 mcg tab 1 tab once daily [Active]; levothyroxine 75 mcg tab 1 tab once daily [Active]; pramipexole 0.25 mg Oral tab 1 tab nightly [Active]; pramopexole 0.25mg at night [Active]; Prevacid Oral once daily [Active]; Risperdal 1 mg Oral tab 1 tab once daily [Active]; risperidone 1 mg Oral tab 1 tab once daily [Active]; Sudafed 30 mg Oral tab twice a day [Active]; trazodone 50 mg Oral tab 1 tab 3 times per day [Active]; trazodone 150 mg Oral tab 1 tab 3 times per day [Active]; - PMHx: 06:50 Bipolar disorder; Hypertension; Thyroid problem; lp1 - Immunization history:: Adult Immunizations not up to date. - Immunization history: Last tetanus immunization: unknown. - Social history:: Smoking status: unknown. - Family history:: not pertinent. - Hospitalizations: : No recent hospitalization is reported. Screenin:05 Abuse screen: Denies threats or abuse. Denies injuries from another. Nutritional rr5 screening: No deficits noted. Tuberculosis screening: No symptoms or risk factors identified. Fall Risk Fall in past 12 months (25 points). Gait- Impaired (20 pts.). Total Trevino Fall Scale indicates High Risk Score (45 or more points). Fall prevention measures have been instituted. Side Rails Up X 2 Frequent Obs/Assessments Occuring As available patient and family educated on Fall Prevention Program and Strategies. Assessment: 08:00 General: Appears in no apparent distress. comfortable, Behavior is calm, cooperative, em appropriate for age. Pain: Complains of pain in left ankle and left shoulder and left leg and left arm Pain currently is 1 out of 10 on a pain scale. Neuro: Level of Consciousness is awake, alert, obeys commands, Oriented to person, place, time, situation, Appropriate for age. Cardiovascular: Capillary refill < 3 seconds Patient's skin is warm and dry. Respiratory: Airway is patent Respiratory effort is even, unlabored, Respiratory pattern is regular, symmetrical. Derm: Skin is intact, is healthy with good turgor, Skin is pink, warm \T\ dry. Musculoskeletal: Range of motion: limited in left shoulder. 08:40 Reassessment: pt request some Tylenol for pain, provider notified, received new em medication orders. Vital Signs: 06:50 BP 150 / 69; Pulse 62; Resp 18; Temp 97.8(O); Pulse Ox 97% on R/A; oe 06:55 Weight 64.86 kg; Height 5 ft. 4 in. (162.56 cm); Pain 1/10; rr5 08:00 BP 152 / 74; Pulse 59; Resp 18; Pulse Ox 99% on R/A; em 09:00 BP 160 / 73; Pulse 58; Resp 18; Pulse Ox 100% on R/A; em 06:55 Body Mass Index 24.54 (64.86 kg, 162.56 cm) rr5 ED Course: 06:41 Patient arrived in ED. sg 06:41 Pearl Gross MD is Private Physician. sg 06:48 Pearl Gross MD is Private Physician. am2 06:55 Bed in low position. Call light in reach. Side rails up X2. Pulse ox on. NIBP on. rr5 07:00 Edmar Todd MD is Attending Physician. rn 07:04 Triage completed. rr5 07:04 Arm band placed on right wrist. rr5 07:22 Vinicio Akhtar, RN is Primary Nurse. em 08:25 XRAY Ankle LEFT 3 view In Process Unspecified. EDMS 08:25 XRAY Shoulder LEFT 2 view In Process Unspecified. EDMS 08:25 XRAY Chest (1 view) In Process Unspecified. EDMS 08:51 Pearl Gross MD is Referral Physician. rn 09:14 No provider procedures requiring assistance completed. Patient did not have IV access em during this emergency room visit. Administered Medications: 08:44 Drug: Tylenol 650 mg Route: PO; em 09:10 Follow up: Response: No adverse reaction; Marked relief of symptoms; Pain is decreased em Intake: 07:00 voided freely rr5 Output: 07:00 Other: 1; Total: 0ml. rr5 07:00 voided freely rr5 Outcome: 08:51 Discharge ordered by . rn 09:14 Discharged to home via wheelchair, with family. em 09:14 Condition: good 09:14 Discharge instructions given to patient, family, Instructed on discharge instructions, follow up and referral plans. Demonstrated understanding of instructions, follow-up care. 09:16 Patient left the ED. em Signatures: Dispatcher [employer] EDMS Jem Vasquez RN TOÑO Vinicio Akhtar, RN RN em Edmar Todd MD MD rn Pena, Laura, RN RN lp1 Pipo Childress Amanda amVictorino Zhu, RN RN rr5
--- NOTE | 2019-12-26 08:53 | EDPHYS ---
Physician Documentation [facility] Name: Charline Leahy Age: 79 yrs Sex: Female : 1940 Arrival Date: 12/26/2019 Time: 06:41 Bed 5 Private MD: Pearl Gross C ED Physician Edmar Todd HPI: 12/25 07:48 This 79 yrs old Female presents to ER via EMS with complaints of Fall Injury, rn ankle and shoulder pain. 07:48 Details of fall: The patient fell from an upright position, while standing. Onset: The rn symptoms/episode began/occurred last night. Associated injuries: The patient sustained left shoulder, left ankle. Severity of symptoms: At their worst the symptoms were moderate, in the emergency department the symptoms have improved. The patient has not experienced similar symptoms in the past. Reports standing up to go to bed from couch, got lightheaded, fell onto left side, no LOC or head injury. Reports pain only to left shoulder and left ankle. Remembers all events. Denies feeling ill prior to fall, feels ok now. No focal neuro complaints. . Historical: - Allergies: 06:50 Sulfa (Sulfonamide Antibiotics); lp1 - Home Meds: 06:50 amlodipine 5 mg tab 1 tab once daily [Active]; amlodipine besylate 5mg at morning lp1 [Active]; Benicar 40 mg Oral tab 1 tab once daily [Active]; bupropion HCl 100 mg Oral tab 1 tab 2 times per day [Active]; bupropion HCl 150 mg Oral TbER 1 tab once daily [Active]; levothyroxine 75 mcg tab 1 tab once daily [Active]; levothyroxine 75 mcg tab 1 tab once daily [Active]; pramipexole 0.25 mg Oral tab 1 tab nightly [Active]; pramopexole 0.25mg at night [Active]; Prevacid Oral once daily [Active]; Risperdal 1 mg Oral tab 1 tab once daily [Active]; risperidone 1 mg Oral tab 1 tab once daily [Active]; Sudafed 30 mg Oral tab twice a day [Active]; trazodone 50 mg Oral tab 1 tab 3 times per day [Active]; trazodone 150 mg Oral tab 1 tab 3 times per day [Active]; - PMHx: 06:50 Bipolar disorder; Hypertension; Thyroid problem; lp1 - Immunization history:: Adult Immunizations not up to date. - Immunization history: Last tetanus immunization: unknown. - Social history:: Smoking status: unknown. - Family history:: not pertinent. - Hospitalizations: : No recent hospitalization is reported. ROS: 07:48 Constitutional: Negative for fever, chills, and weight loss, Eyes: Negative for injury, rn pain, redness, and discharge, Neck: Negative for injury, pain, and swelling, Cardiovascular: Negative for chest pain, palpitations, and edema, Respiratory: Negative for shortness of breath, cough, wheezing, and pleuritic chest pain, Abdomen/GI: Negative for abdominal pain, nausea, vomiting, diarrhea, and constipation, Back: Negative for injury MS/Extremity: + left shoulder and ankle pain Skin: Negative for injury, rash, and discoloration, Neuro: Negative for headache, weakness, numbness, tingling, and seizure. Exam: 07:48 Constitutional: This is a well developed, well nourished patient who is awake, alert, rn and in no acute distress. Head/Face: Normocephalic, atraumatic. Eyes: Subconjunctival hemorrhage left eye (reports that gets with eye shots) Neck: No midline tenderness Chest/axilla: Normal chest wall appearance and motion. Nontender with no deformity. No lesions are appreciated. Cardiovascular: Regular rate and rhythm. No pulse deficits. Respiratory: No increased work of breathing, no retractions or nasal flaring. Abdomen/GI: soft, non-tender Back: No spinal tenderness. MS/ Extremity: Pulses equal, no cyanosis. Neurovascular intact. + tenderness over left clavicle, + mild bimalleolar tenderness left ankle without gross deformity. Neuro: Awake and alert, GCS 15, oriented to person, place, time, and situation. Cranial nerves II-XII grossly intact. Motor strength 5/5 in all extremities. Sensory grossly intact. Cerebellar exam normal. Vital Signs: 06:50 BP 150 / 69; Pulse 62; Resp 18; Temp 97.8(O); Pulse Ox 97% on R/A; oe 06:55 Weight 64.86 kg; Height 5 ft. 4 in. (162.56 cm); Pain 1/10; rr5 08:00 BP 152 / 74; Pulse 59; Resp 18; Pulse Ox 99% on R/A; em 09:00 BP 160 / 73; Pulse 58; Resp 18; Pulse Ox 100% on R/A; em 06:55 Body Mass Index 24.54 (64.86 kg, 162.56 cm) rr5 MDM: 07:00 Patient medically screened. rn 08:50 Differential diagnosis: contusion, fracture, sprain, strain. Data reviewed: vital rn signs, nurses notes, radiologic studies, plain films, and as a result, I will discharge patient. Test interpretation: by ED physician or midlevel provider: plain radiologic studies, No acute findings on xray chest/shoulder/ankle. . Counseling: I had a detailed discussion with the patient and/or guardian regarding: the historical points, exam findings, and any diagnostic results supporting the discharge/admit diagnosis, radiology results, the need for outpatient follow up, to return to the emergency department if symptoms worsen or persist or if there are any questions or concerns that arise at home. Special discussion: I discussed with the patient/guardian in detail that at this point there is no indication for admission to the hospital. It is understood, however, that if the symptoms persist or worsen the patient needs to return immediately for re-evaluation. 12/25 07:14 Order name: XRAY Ankle LEFT 3 view; Complete Time: 08:50 rn 12/25 07:14 Order name: XRAY Shoulder LEFT 2 view; Complete Time: 08:50 rn 12/25 07:14 Order name: XRAY Chest (1 view); Complete Time: 08:50 rn Administered Medications: 08:44 Drug: Tylenol 650 mg Route: PO; em 09:10 Follow up: Response: No adverse reaction; Marked relief of symptoms; Pain is decreased em Disposition: 12/26/19 08:51 Discharged to Home. Impression: Contusion of left shoulder, Contusion of left ankle. - Condition is Stable. - Discharge Instructions: Ankle Sprain, Shoulder Pain. - Medication Reconciliation Form, Thank You Letter, Antibiotic Education, Prescription Opioid Use, SBAR form form. - Follow up: Pearl Gross MD; When: As needed; Reason: Recheck today's complaints, Re-evaluation by your physician. - Problem is new. - Symptoms have improved. Signatures: Dispatcher [employer] EDVinicio Zamora RN Edmar Toney MD MD rn Pena, Laura, RN RN lp1 Victorino Moseley, RN RN rr5 Corrections: (The following items were deleted from the chart) 07:55 07:48 Constitutional: This is a well developed, well nourished patient who is awake, rn alert, and in no acute distress. Head/Face: Normocephalic, atraumatic. Eyes: Subconjunctival hemorrhage left eye (reports that gets with eye shots) Neck: No midline tenderness Chest/axilla: Normal chest wall appearance and motion. Nontender with no deformity. No lesions are appreciated. Cardiovascular: Regular rate and rhythm. No pulse deficits. Respiratory: No increased work of breathing, no retractions or nasal flaring. Abdomen/GI: soft, non-tender Back: No spinal tenderness. MS/ Extremity: Pulses equal, no cyanosis. Neurovascular intact. Full, normal range of motion. Equal circumference. Neuro: Awake and alert, GCS 15, oriented to person, place, time, and situation. Cranial nerves II-XII grossly intact. Motor strength 5/5 in all extremities. Sensory grossly intact. Cerebellar exam normal. rn 09:16 08:51 12/26/2019 08:51 Discharged to Home. Impression: Contusion of left shoulder; em Contusion of left ankle. Condition is Stable. Forms are SBAR form, Medication Reconciliation Form, Thank You Letter, Antibiotic Education, Prescription Opioid Use. Follow up: A Gross; When: As needed; Reason: Recheck today's complaints, Re-evaluation by your physician. Problem is new. Symptoms have improved. rn
[2019-12-26] MEDS ORDERED: ACETAMINOPHEN 325 MG TABLET ONE (08:54)
[2019-12-26 09:22] VITALS: TEMP 97.8
[2019-12-26 09:25] VITALS: BP 160/73; O2SAT 100
--- OUTSIDE RECORDS SUMMARY | 2019-12-29 02:34 | XMS REPORT | Continuity of Care Document ---
:1940 Author Organization [facility] t Address [address] [place] [address] Care Team Providers Name Role Phone Brdiger Gross MD Primary Care Physician Anders Keita MD Attending Clinician Ha Marquis MD Attending Clinician Cindy Eubanks APRN Attending Clinician Darek Watts MD Attending Clinician Kyree Sutherland MD Attending Clinician IAN Admitting Clinician Unavailable Payers Payer Name Policy Type Policy Effective Date Expiration Date Sour ce Number AETNA MEDICAREAETNA [id number] 2013 [place] MEDICARE HMO/PPO 00:00:00 Methodis t [id number] -PresentHMO Problems Condition Condition Condition Status Onset Resolution [...] Date Date Clinician Sulfa Propensi Active Rash [place] (Sulfona ty to 2-14 Methodi mide adverse 00:00: st Antibiot reaction 00 ics) s to drug Social History Social Habit Start Date Stop Date Quantity Comments Source Sex Assigned At [facility] ethodist Tobacco use and 2019-05-12 2019-05-12 Never used [facility] ethodist exposure 00:00:00 00:00:00 Alcohol intake 2019-05-12 2019-05-12 Current drinker Sudha on Jain 00:00:00 00:00:00 of alcohol (finding) Alcohol Comment 2019-05-11 2019-05-11 Once a year - Matias henao Jain 00:00:00 00:00:00 wine Smoking Status Start Date Stop Date Source Never smoker Quinn haile Medications Ordered Filled Start Stop Current Ordering Indication Dosage Frequency Signature Comments Components Source Medication Medication Date Date Medication? Clinician (SIG) Name Name amLODIPine 2020-0 Yes 5mg QD Take 5 mg [place] (NORVASC) 5 2-21 by mouth Meth katherin mg tablet 19:38: daily. st 21 buPROPion 2020-0 Yes 300mg QD Take 300 Amol ston XL 2-21 mg by Methodi (WELLBUTRIN 19:38: mouth st XL) 300 MG 21 daily. 24 hr tablet propranolol 2020-0 Yes 10mg [id number] Take 10 mg Ball (INDERAL) 2-21 [id number] by mouth 3 [facility] 10 MG 19:38: 3D (three) st tablet 21 times a day. cholecalcif 2020-0 Yes Take by Amolkingsley elizondo rajesh, 2-21 mouth. [facility] vitamin D3, 19:38: st (VITAMIN D3 21 ORAL) cyanocobala 2020-[address] Amol elizondo min/cobamam 2-21 7,500 mcg Met hodi [...] ORAL) 21 TURMERIC 2020-0 Yes Take by Hellento n ORAL 2-21 mouth. Methodi 19:38: st 21 Lactobacill 2020-0 Yes Take by Amolkingsley elizondo us 2-21 mouth. [facility] acidophilus 19:38: st (PROBIOTIC 21 ORAL) multivitami 2020-0 Yes Take by Amol ston n with 2-21 mouth. [facility] minerals 19:38: [...] for congestion . denosumab 2020-0 Yes Inject [place] (PROLIA 2-21 under the [facility] SUBQ) 19:38: skin. st 21 pantoprazol 2020-0 Yes 40mg QD Take 40 mg Ball e 2-21 by mouth Methodi (PROTONIX) 19:38: daily. st 40 MG EC 21 tablet sennosides- 2019-2020- No 1{tbl} QD Take 1 [place] docusate 2-21 02-20 tablet by Metho di sodium 00:00: 23:[address] (SENOKOT-S) 00 :00 nightly as 8.6-50 mg needed for per tablet constipati on. acetaminoph 2019-0 2019- No 650mg Q6H Take 2 [place] en 2-21 - tablets [facility] (TYLENOL) 00:00: 23:59 ([address] 325 MG 00 :00 total) by tablet mouth every 6 (six) hours as needed for mild pain or moderate pain for up to 5 days. Vital Signs Vital Name Observation Time Observation Value Comments Source Systolic blood 2019-05-13 12:47:19 160 mm[Hg] [place] Jain pressure Diastolic blood 2019-05-13 12:47:19 77 mm[Hg] [place] on Jain pressure Heart rate 2019-05-13 12:47:19 69 /min Ball Jain Body temperature 2019-05-13 12:47:19 36.22 Elvia [place] Jain Respiratory rate 2019-05-13 12:47:19 18 /min [place]en ton Jain Oxygen saturation in 2019-05-13 12:47:19 95 /min Quinn Kwon Arterial blood by Pulse oximetry Body height 2019-05-11 12:00:00 162.6 cm Quinn Kwon Body weight 2019-05-11 12:00:00 65.273 kg Quinn Kwon BMI 2019-05-11 12:00:00 24.70 kg/m2 Quinn Kwon Procedures Procedure Date / Time Performing Clinician Source Performed HC COMPLETE BLD COUNT 2019-05-13 06:00:00 Dakotah Edge Jain W/AUTO DIFF BASIC METABOLIC PANEL 2019-05-13 04:00:00 Dakotah Edge Jain MAGNESIUM LEVEL 2019-05-13 04:00:00 Dakotah Edge Pr thodist PHOSPHORUS LEVEL 2019-05-13 04:00:00 Dakotah Edge ethodist ESTIMATED GFR 2019-05-13 04:00:00 Dhaval Keita ethodist HC COMPLETE BLD COUNT 2019-05-12 05:25:00 Reji Blank n Jain W/AUTO DIFF MAGNESIUM LEVEL 2019-05-12 00:00:00 Reji Blank Meth odist PHOSPHORUS LEVEL 2019-05-12 00:00:00 Reji Blank Met hodist BASIC METABOLIC PANEL 2019-05-12 00:00:00 Reji Blank n Jain ESTIMATED GFR 2019-05-12 00:00:00 Dhaval Keita ethodist HC COMPLETE BLD COUNT 2019-05-11 16:00:00 Reji Blank n Jain W/AUTO DIFF SURGICAL PATHOLOGY REQUEST 2019-05-11 15:22:00 Dhaval Keita BASIC METABOLIC PANEL 2019-05-11 15:17:00 Karthikeyan Blankwo Matias Alvarezist MAGNESIUM LEVEL 2019-05-11 15:17:00 AndreyReji davidson Meth odist PHOSPHORUS LEVEL 2019-05-11 15:17:00 Reji Blank Met hodist ESTIMATED GFR 2019-05-11 15:17:00 Dhaval Keitaodist ND AN ELECTIVE 2019-05-11 13:22:31 Scott Marquis ENDOTRACHEAL [...] Future Scheduled 2019-10-22 INFLUENZA VACCINE Hellento juliano Jain Test 00:00:00 [code = INFLUENZA VACCINE] Future Scheduled 2005 65+ PNEUMOCOCCAL Quinn Kwon Test 00:00:00 VACCINE (1 of 1 - PPSV23) [code = 65+ PNEUMOCOCCAL VACCINE (1 of 1 - PPSV23)] Future Scheduled 1990 SHINGLES VACCINES (#1) H clem Kwon Test 00:00:00 [code = SHINGLES VACCINES (#1)] Encounters Start End Encounter Admission Attending Care Care Encounter Source Date/Time Date/Time Type Type Clinicians Facility Department ID 2019-05-24 2019-05-24 Outpatient IAN [facility] [id number] [place] 00:00:00 00:00:00 DHAVAL [address] 2019-05-11 2019-05-13 Inpatient IAN [facility] [id number] [place] 00:00:00 00:00:00 DHAVAL [address] 2019-05-06 2019-05-06 Outpatient TORY [facility] [id number] [place] 00:00:00 00:00:00 ALFRED Cartwright [facility] Results Test Description Test Time Test Comments Results Result Comments Source Surgical pathology request 2019-05-13 15:39:50 Test Item Value Reference Range Interpretation Comme nts Case number (test code = 2651508) [id number] Surgical pathology report (test code = See link below for PDF Lab R eport 2252) Result status (test code = 3608810) This is Final Report for [id number] [place] [facility] metabolic [id number] 07:20:22 Test Item Value Reference Range Interpretation Comments Sodium (test code = 2951-2) 141 135- 148 mEq/L Potassium (test code = 2823-3) 3.9 3.5- 5.0 mEq/L Chloride (test code = 2075-0) 105 98- 112 mEq/L CO2 (test code = 8-9) 24 24- 31 mEq/L Anion gap (test code = 82660-3) 12@ANIO 7- 15 mEq/L BUN (test code = 3094-0) 8 mg/dL 8-23 Creatinine (test code = 2160-0) 0.92 mg/dL 0.5-0.9 H Glucose (test code = 2345-7) 115 mg/dL 65-99 H Calcium (test code = 08581-1) 8.7 mg/dL 8.8-10.2 L Lab Interpretation (test code = Abnormal 89050-8) [place] MethodistMagnesium [id number] 07:20:22 Test Item Value Reference Range Interpretation Comments Magnesium (test code = 70446-9) 2.0 mg/dL 1.6-2.4 [place] MethodistPhosphorus [id number] 07:20:22 Test Item Value Reference Range Interpretation Comments Phosphorus (test code = 2777-1) 1.9 mg/dL 2.4-4.5 L Lab Interpretation (test code = Abnormal 92812-2) Quinn MethodistEstimated [id number] 07:20:22 Test Item Value Reference Range Interpretation Comments Estimated GFR (test 59 mL/min/1.73 m2 Pearl redmond Units code = 5488) InterpretationG 1 >=90 Enma l or highG2 60-89 Mildly decrease dG3a 45-59 Mil dly to moderately decr qckffJ6x 30-44 Moderately to s everely decreasedG4 15-29 Severe ly decreasedG5 <15 Kidney bao lureThe eGFR was calcul ated using the Chron Kidney Disease Epidemiology Collaboration ( CKD-EPI) equation. Interpretation is based on recommendati ons of the National [facility]-Kidn ey Disease Outcome s Quality Initiat komal (NKF-KDOQI) pub lished in 2013. Lab Interpretation Abnormal (test code = 77962-7) Quinn MethodistCBC with platelet and [id number] 07:02:05 Test Item Value Reference Range Interpretation Comments WBC (test code = 35503-6) 9.52 4.50- 11.00 k/uL RBC (test code = 77628-1) 3.53 m/uL 4.2-5.5 L HGB (test code = 718-7) 9.4 g/dL 12-16 L HCT (test code = 4544-3) 30.5 % 37-47 L MCV (test code = 787-2) 86.4 fL 82-100 MCH (test code = 785-6) 26.6 pg 27-34 L MCHC (test code = 786-4) 30.8 g/dL 31-37 L RDW - SD (test code = 47.2 fL 37-55 72144-6) MPV (test code = 60306-5) 9.5 fL 8.8-13.2 Platelet count (test code 294 150- 400 k/uL = 54148-8) Nucleated RBC (test code 0.00 /100 WBC = 31004-2) Neutrophils (test code = 75.9 % 39-69 H 06169-6) Lymphocytes (test code = 10.4 % 25-45 L 38747-6) Monocytes (test code = 11.1 % 0-10 H 65794-0) Eosinophils (test code = 1.6 % 0-5 14728-2) Basophils (test code = 0.7 % 0-1 65323-1) Immature granulocytes 0.3 % 0-1 "Immat ure (test code = 71534-2) granul ocytes" (promyelocytes, myelocytes, metamyelocytes) Lab Interpretation (test Abnormal code = 35789-5) Quinn MethodistType and [id number] 13:30:00 Test Item Value Reference Range Interpretation Comments ABO grouping (test code = 883-9) O Rh type (test code = 37832-5) NEG Antibody screen (gel) (test code = NEG 890-4) Quinn [id number] 13:22:31Scott Marquis II, MD 05/11/2019 1:23 PMAirwayDate/Time: [...] Approach: 1 Atraumatic. Dentition unchangedHouston MethodistECG Pre/Post [id number] 18:51:18 Test Item Value Reference Range Interpretation Comments Ventricular rate (test 60 code = 253) Atrial rate (test code = 60 255) ND interval (test code = 164 266) QRSD [...] 05/06/2019 6:51:15 PM Quinn KwonPartial thromboplastin time, [id number] 11:26:30 Test Item Value Reference Range Interpretation Comments PTT (test code = 29.2 23.0- 36.0 [place] [address]-2) unfractionated heparin is61.0-112.0 se conds which corresponds to Anti-Xa0.3-0.7 U/ml. Quinn KwonProthrombin time with [id number] 11:26:20 Test Item Value Reference Range Interpretation Comments Prothrombin time (test 12.8 11.5- 14.5 sec code = 5902-2) INR (test code = 1.0 [facility] 05227-9) Normalized Rati o (INR) is a therapeutic m onitoring tool for patien ts who are stable on oral anticoagulant t herapy. An INR of 2.0-3.0 is suggested for d eep vein thrombosis/pulm onary embolism. Quinn KwonXR Chest 2 [id number] 11:16:14Hm Interface, Radiology Results Incoming - 05/06/2019 [...] of lower thoracic spine v ertebral body. [id number] Methodist
--- OUTSIDE RECORDS SUMMARY | 2019-12-29 02:34 | XMS REPORT | Clinical Summary ---
:1940 Author Organization [facility] Address [address] [place] [address] Care Team Providers Name Role Phone Bridger [...] Scott Marquis II, MD Everitt, Amanda W., EQUIPMENT MECHANIC SPECIALIST 05/11/2019 - Hospital Encounter Cardiology Bossman, Diaphragm [...] gangrene and obstruction (Pr imary Dx) after 12/27/2018 Surgical History Surgery Date Site/Laterality Comments PARTIAL HIP ARTHROPLASTY 03/23/2018 - Right 03/22/2019 ENDOSCOPY, UGI 03/23/2007 - 03/22/2008 CATARACT EXTRACTION, 03/23/2001 - BILATERAL 03/22/2002 CHOLECYSTECTOMY 03/23/1992 - 03/22/1993 HYSTERECTOMY 03/23/1970 - 03/22/1971 ENDOMETRIAL ABLATION 03/23/1959 - 03/22/1960 REPAIR, HIATAL HERNIA, 05/11/2019 Abdomen/N/A Procedure : LAPARSCOPIC LAPAROSCOPIC HIATAL HERNIA RE PAIR W / FUNDOPLICATION; Surgeon: Peter hernández, Dhaval Mcnamara MD; Locatio n: [facility]; Servic e: General; Latera lity: N/A; Medical History Medical History Date Comments Hypertension Mitral valve prolapse No treatment Chronic kidney disease (CKD) CKD stage 3 - followed by PCP Dr. César Gross Hyperlipemia Diverticulitis Hypothyroidism Osteoporosis Anesthesia NHAP / NFHAP Does not exercise ABle to climb two fl ights of stairs. 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 T9 vertebral fracture (HCC) 2014 shown on xra y - old fracture Social History Tobacco Use Types Packs/Day Years Used Date Never Smoker Smokeless Tobacco: Never Used Alcohol Use Drinks/Week oz/Week Comments Yes Once a year - wi ne Sex Assigned at Date Recorded Not on file Last Filed Vital Signs Vital Sign Reading Time Taken Comments Blood Pressure 160/77 05/13/2019 12:47 PM ARCHITECTURE INSTRUCTOR Pulse 69 05/13/2019 12:47 PM ARCHITECTURE INSTRUCTOR Temperature 36.2 C (97.2 F) 05/13/2019 12:47 PM ARCHITECTURE INSTRUCTOR Respiratory Rate 18 05/13/2019 12:47 PM ARCHITECTURE INSTRUCTOR Oxygen Saturation 95% 05/13/2019 12:47 PM ARCHITECTURE INSTRUCTOR Inhaled Oxygen Concentration - - Weight 65.3 kg (143 lb 14.4 oz) 05/11/2019 12:00 PM ARCHITECTURE INSTRUCTOR Height 162.6 cm (5' 4") 05/11/2019 12:00 PM ARCHITECTURE INSTRUCTOR Body Mass Index 24.7 05/11/2019 12:00 PM ARCHITECTURE INSTRUCTOR Plan of Treatment Health Maintenance Due Date Last Done Comments SHINGLES VACCINES (#1) 1990 65+ PNEUMOCOCCAL VACCINE (1 of 1 - PPSV23) 2005 INFLUENZA VACCINE 10/22/2019 Procedures Procedure Name Priority Date/Time Associated Diagnosis Comme nts HC COMPLETE BLD COUNT Routine 05/13/2019 6:00 Re sults for this W/AUTO DIFF AM ARCHITECTURE INSTRUCTOR procedure are i n the results section. ESTIMATED GFR Routine 05/13/2019 4:00 Results fo r this AM ARCHITECTURE INSTRUCTOR procedure are i n the results section. PHOSPHORUS LEVEL Routine 05/13/2019 4:00 Results for this AM ARCHITECTURE INSTRUCTOR procedure are i n the results section. MAGNESIUM LEVEL Routine 05/13/2019 4:00 Results for this AM ARCHITECTURE INSTRUCTOR procedure are i n the results section. BASIC METABOLIC PANEL Routine 05/13/2019 4:00 Re sults for this AM ARCHITECTURE INSTRUCTOR procedure are i n the results section. HC COMPLETE BLD COUNT Routine 05/12/2019 5:25 Re sults for this W/AUTO DIFF AM ARCHITECTURE INSTRUCTOR procedure are i n the results section. ESTIMATED GFR Routine 05/12/2019 12:00 Results fo r this AM ARCHITECTURE INSTRUCTOR procedure are i n the results section. BASIC METABOLIC PANEL Routine 05/12/2019 12:00 Re sults for this AM ARCHITECTURE INSTRUCTOR procedure are i n the results section. PHOSPHORUS LEVEL Routine 05/12/2019 12:00 Results for this AM ARCHITECTURE INSTRUCTOR procedure are i n the results section. MAGNESIUM LEVEL Routine 05/12/2019 12:00 Results for this AM ARCHITECTURE INSTRUCTOR procedure are i n the results section. HC COMPLETE BLD COUNT Routine 05/11/2019 4:00 Re sults for this W/AUTO DIFF PM ARCHITECTURE INSTRUCTOR procedure are i n the results section. SURGICAL PATHOLOGY Routine 05/11/2019 3:22 Resul ts for this REQUEST PM ARCHITECTURE INSTRUCTOR procedure are i n the results section. ESTIMATED GFR Routine 05/11/2019 3:17 Results fo r this PM ARCHITECTURE INSTRUCTOR procedure are i n the results section. PHOSPHORUS LEVEL Routine 05/11/2019 3:17 Results for this PM ARCHITECTURE INSTRUCTOR procedure are i n the results section. MAGNESIUM LEVEL Routine 05/11/2019 3:17 Results for this PM ARCHITECTURE INSTRUCTOR procedure are i n the results section. BASIC METABOLIC PANEL Routine 05/11/2019 3:17 Re sults for this PM ARCHITECTURE INSTRUCTOR procedure are i n the results section. HI AN ELECTIVE Routine 05/11/2019 1:22 Results f or this ENDOTRACHEAL AIRWAY PM ARCHITECTURE INSTRUCTOR procedur e are in the results section. REPAIR, HIATAL 05/11/2019 12:49 Diaphragmatic hernia HERNIA, LAPAROSCOPIC PM ARCHITECTURE INSTRUCTOR without obstruction or gangrene Case Notes POSSIBLE EXTENDED RECOVERY N EEDED Special Needs POSSIBLE EXTENDED RECOVERY N EEDED TYPE AND SCREEN STAT 05/11/2019 11:45 AM Resul ts for this ARCHITECTURE INSTRUCTOR procedure are i n the results section. XR CHEST 2 VW Routine 05/06/2019 11:12 AM Preop examination Re sults for this ARCHITECTURE INSTRUCTOR procedure are i n the results section. ECG PRE/POST OP Routine 05/06/2019 10:33 AM Preop examination Results for this ARCHITECTURE INSTRUCTOR procedure are i n the results section. ESTIMATED GFR Routine 05/06/2019 10:23 AM Results for this ARCHITECTURE INSTRUCTOR procedure are i n the results section. HC COMPLETE BLD COUNT Routine 05/06/2019 10:23 AM Preop examin ation Results for this W/AUTO DIFF ARCHITECTURE INSTRUCTOR procedure are i n the results section. BASIC METABOLIC PANEL Routine 05/06/2019 10:23 AM Preop examin ation Results for this ARCHITECTURE INSTRUCTOR procedure are i n the results section. PROTHROMBIN TIME WITH Routine 05/06/2019 10:23 AM Preop examin ation Results for this INR ARCHITECTURE INSTRUCTOR procedure are i n the results section. PARTIAL THROMBOPLASTIN Routine 05/06/2019 10:23 AM Preop exami nation Results for this TIME (PTT) ARCHITECTURE INSTRUCTOR procedure are i n the results section. SURGICAL PATHOLOGY Routine 05/04/2019 5:13 PM Re sults for this REQUEST ARCHITECTURE INSTRUCTOR procedure are i n the results section. after 12/27/2018 Results CBC with platelet and differential (05/13/2019 6:00 AM ARCHITECTURE INSTRUCTOR)Only the most recent of4 resultswithin the time period is included. WBC 9.52 4.50 - 11.00 [facility] k/uL [facility] RBC 3.53 (L) 4.20 - 5.50 [facility] m/uL [facility] HGB 9.4 (L) 12.0 - 16.0 [facility] g/dL [facility] HCT 30.5 (L) 37.0 - 47.0 % [facility] MCV 86.4 82.0 - 100.0 [facility] MCH 26.6 (L) 27.0 - 34.0 pg [facility] MCHC 30.8 (L) 31.0 - 37.0 [facility] g/dL [facility] RDW - SD 47.2 37.0 - 55.0 fL [facility] MPV 9.5 8.8 - 13.2 fL [facility] Platelet count 294 150 - 400 k/uL [facility] Nucleated RBC 0.00 /100 WBC [facility] Neutrophils 75.9 (H) 39.0 - 69.0 % [facility] Lymphocytes 10.4 (L) 25.0 - 45.0 % [facility] Monocytes 11.1 (H) 0.0 - 10.0 % [facility] Eosinophils 1.6 0.0 - 5.0 % [facility] Basophils 0.7 0.0 - 1.0 % [facility] Immature granulocytes 0.3Comment: 0.0 - 1.0 % [facility] "Immature HOSPITAL granulocytes" (promyelocytes , myelocytes, metamyelocytes ) Specimen Blood Performing Organization Address [facility] Phon e Number [facility] DEPARTMENT OF PATHOLOGY AND [address] [place] [address] [phone] [address] Estimated GFR (05/13/2019 4:00 AM ARCHITECTURE INSTRUCTOR)Only the most recent of4 resultswithin the time period is included. Estimated GFR 59 (A) mL/min/1.73 [facility] Comment: m2 HOSPITAL Catergory Units Interpretation G1 [...] 2014. Specimen Plasma specimen Performing Organization Address [facility] Phon e Number [facility] DEPARTMENT OF PATHOLOGY AND [address] [place] [address] [address] Phosphorus level (05/13/2019 4:00 AM ARCHITECTURE INSTRUCTOR)Only the most recent of3 resultswithin the time period is included. Pathologist Sig nature Phosphorus 1.9 (L) 2.4 - 4.5 mg/dL [facility] L Specimen Plasma specimen Performing Organization Address [facility] Phon e Number [facility] DEPARTMENT OF PATHOLOGY AND [address] [place] [address] [phone] [address] Magnesium level (05/13/2019 4:00 AM ARCHITECTURE INSTRUCTOR)Only the most recent of3 resultswithin the time period is included. Pathologist Sig nature Magnesium 2.0 1.6 - 2.4 mg/dL [facility] L Specimen Plasma specimen Performing Organization Address [facility] Phon e Number [facility] DEPARTMENT OF PATHOLOGY AND [address] [place] [address] [phone] [address] Basic metabolic panel (05/13/2019 4:00 AM ARCHITECTURE INSTRUCTOR)Only the most recent of4 results within the time period is included. Pathologist Sig nature Sodium 141 135 - 148 mEq/L [facility] Potassium 3.9 3.5 - 5.0 mEq/L [facility] Chloride 105 98 - 112 mEq/L [facility] CO2 24 24 - 31 mEq/L [facility] Anion gap 12@ANIO 7 - 15 mEq/L [facility] BUN 8 8 - 23 mg/dL [facility] Creatinine 0.92 (H) 0.50 - 0.90 mg/dL [facility] Glucose 115 (H) 65 - 99 mg/dL [facility] Calcium 8.7 (L) 8.8 - 10.2 mg/dL [facility] Specimen Plasma specimen Performing Organization Address [facility] Phon e Number [facility] DEPARTMENT OF PATHOLOGY AND [address] [place] [address] [address] Surgical pathology request (05/11/2019 3:22 PM ARCHITECTURE INSTRUCTOR)Only the most recent of2 resultswithin the time period is included. [facility] DEPARTMENT OF PATHOLOGY AND GENOMIC MEDICINE Surgical pathology See link below [facility] DEPARTMENT OF report for PDF Lab PATHOLOGY AND Report GENOMIC MEDICINE Result status This is Final [facility] DEPARTMENT OF Report for PATHOLOGY AND [id number] GENOMIC MEDICINE Specimen Performing Organization Address City/[facility] Phon e Number [facility] DEPARTMENT OF PATHOLOGY AND [address] [place] [phone] GENOMIC MEDICINE Airway (05/11/2019 1:22 PM ARCHITECTURE INSTRUCTOR) Narrative Performed At Scott Marquis II, MD [...] Oral Blade Type: Ayala Laryngoscope Blade/Videolaryngoscope Leighton garay Size: 2 ETT Size (mm): 7.0 Cuff at minimum occlusion pressure: Yes Measured from: Lips ETT to Lips (cm): 21 Placement Verified by: CO2 detection, di rect visualization and equal breath sounds Laryngoscopic view: Grade IIa - partia l view of glottis Number of Attempts at Approach: 1 Atraumatic. Dentition unchanged Type and screen (05/11/2019 11:45 AM ARCHITECTURE INSTRUCTOR) Pathologist Sig nature ABO grouping O [facility] Rh type NEG [facility] Antibody screen (gel) NEG [facility] Specimen Blood Performing Organization Address City/[facility] Phon e Number [facility] DEPARTMENT OF PATHOLOGY AND [address] [place], [place] [phone] GENOMIC MEDICINE [address] [address] XR Chest 2 Vw (05/06/2019 11:12 AM ARCHITECTURE INSTRUCTOR) Specimen Narrative Performed At EXAMINATION: XR CHEST [...] wedging of lower thoracic spine vertebral body. [id number] Procedure Note Interface, Radiology Results Incoming - 05/06/2019 11:19 AM ARCHITECTURE INSTRUCTOR EXAMINATION: XR CHEST 2 VW CLINICAL HISTORY: [...] wedging of lower thoracic spine vertebral body. [id number] Performing Organization Address City/[facility] Code Phon e Number [facility] [address] [place] [address] ECG Pre/Post Op (05/06/2019 10:33 AM ARCHITECTURE INSTRUCTOR) Pathologist Sig nature Ventricular rate 60 [facility] Atrial rate 60 [facility] HI interval 164 [facility] QRSD interval 100 [facility] QT interval 418 [facility] QTC interval 418 [facility] P axis 1 57 [facility] QRS axis 1 -38 [facility] T wave axis 58 [facility]USE EKG impression Normal sinus [facility] MUSE rhythm-Left axis deviation-Possible Anterior infarct , age undetermined-Abnormal ECG-No previous ECGs available-Electronicall y Signed By Jules GREEN, Armadno Reynoso ([id number]) on 05/06/2019 6:51:15 PM Specimen Narrative Performed At This result has an attachment that is no t available. Performing Organization Address City/[facility] Code Phon e Number [facility] MUSE [address] [place] [phone] Partial thromboplastin time, activated (05/06/2019 10:23 AM ARCHITECTURE INSTRUCTOR) PTT 29.2 23.0 - 36.0 [facility] Comment: [facility] PTT therapeutic range for unfractionated heparin is 61.0-112.0 seconds which corresponds to Anti-Xa 0.3-0.7 U/ml. Specimen Blood Performing Organization Address City/State/ZIP Code Phon e Number [facility] DEPARTMENT OF PATHOLOGY AND [address] [place] [address] [phone] [address] Prothrombin time with INR (05/06/2019 10:23 AM ARCHITECTURE INSTRUCTOR) Pathologist [facility] Prothrombin time 12.8 11.5 - 14.5 [facility] INR 1.0 [place] Comment: [facility] International Normalized Ratio (INR) is a [facility] monitoring tool for patients who are stable on oral anticoagulant therapy. An INR of 2.0-3.0 is suggested for deep vein thrombosis/pulmonary embolism. 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
== END 2019-12-26 09:16 | disposition home or self-care (01) ==
LOC: ER 06:40
DX: S40.012A Contusion of left shoulder, initial encounter (principal); S90.02XA Contusion of left ankle, initial encounter; I10 Essential (primary) hypertension; F31.9 Bipolar disorder, unspecified; E07.9 Disorder of thyroid, unspecified; W19.XXXA Unspecified fall, initial encounter; Y93.89 Activity, other specified; Y92.9 Unspecified place or not applicable; Z88.2 Allergy status to sulfonamides
CPT/HCPCS: 71045; 99284; G0390